=== PATIENT | female | born 1950 | race Caucasian/White ===

== ENCOUNTER 2020-06-01 11:18 | Outpatient (REF) | payer MEDICARE, SELFPAY ==
[2020-06-01 13:57] LABS: Hematocrit 40.9 % (37-47); Hemoglobin 12.9 g/dl (12.0-16.0); Mean Corpuscular HGB Conc 31.5 g/dl (31.0-35.0); Mean Corpuscular Hemoglobin 27.9 pg (27.0-33.0); Mean Corpuscular Volume 88.5 fL (80-98); Mean Platelet Volume 9.7 fL (9.4-12.3); Platelet Count 302 X10*3/uL (160-400); Red Blood Count 4.62 X10*6/uL (4.20-5.50); Red Cell Distribution Width 13.1 % (11.0-16.0); White Blood Count 7.2 X10*3/uL (4.8-10.8)
[2020-06-01 14:27] LABS: Alanine Aminotransferase 12 U/L (0-31); Albumin Level 4.5 g/dL (3.5-5.0); Alkaline Phosphatase 71 U/L (39-117); Anion Gap 14 (12-20); Aspartate Amino Transferase 18 U/L (5-31); Bilirubin Total 0.8 mg/dL (0.0-1.0); Blood Urea Nitrogen 14 mg/dL (9-16); Calcium 8.6 mg/dL (8.4-10.2); Carbon Dioxide 25 mmol/L (22-29); Chloride 105 mmol/L (96-108); Cholesterol 185 mg/dL; Estimated Glomerular Filt Rate > 60; Glucose Fasting 83 mg/dL (60-99); HDL Cholesterol 52 mg/dL; LDL Cholesterol Calculated 113 mg/dl; Potassium 4.2 mmol/l (3.3-5.1); Sodium 140 mmol/L (135-145); Total Protein 7.1 g/dL (6.5-8.0); Triglycerides 101 mg/dL
[2020-06-01 14:34] LABS: Vitamin D 25-OH Total 42.8 ng/mL (>30)
== END 2020-06-01 11:19 | disposition home or self-care (01) ==
LOC: HO.HMGCLDS 11:18
PROVIDERS: PCP Internal Medicine; Visit Provider Internal Medicine
DX: E78.2 Mixed hyperlipidemia (principal); F32.9 Major depressive disorder, single episode, unspecified; M85.80 Other specified disorders of bone density and structure, unspecified site
CPT/HCPCS: 36415; 80053; 80061; 82306; 85027

== ENCOUNTER 2020-12-06 08:32 | Outpatient (REF) | payer MEDICARE, SELFPAY ==
--- NOTE | ~2020-12-06 | MM_ITS ---
EXAMINATION: MM SCREENING DIGITAL BREAST TOMOSYNTHESIS, BILATERAL CLINICAL INFORMATION: Screening. Asymptomatic. Benign right retroareolar lumpectomy 09/03/2018 (benign breast tissue with fibrocystic changes; focal area representing the edge of the cyst or part of a papilloma). The lifetime risk of breast cancer based on the Tyrer-Cuzick Model is 10%. COMPARISON: Mammography: 10/07/2019, 10/05/2019, 07/21/2018; outside exam 11/24/2017 ([place]). TECHNIQUE: Digital breast tomosynthesis is performed in both the craniocaudal and mediolateral oblique views along with computer-aided detection (CAD). Synthesized 2D images are generated from the tomosynthesis. FINDINGS: There are scattered areas of fibroglandular density (ACR BI-RADS breast composition Category b). There are no significant masses, abnormal calcifications, or other abnormalities. Parenchymal pattern is similar to prior exams. No developing density. Skin contours are smooth. MM/MM tomosynthesis screening BI IMPRESSION: No mammographic evidence of malignancy. ASSESSMENT: BI-RADS 1: Negative RECOMMENDATION: Routine annual mammography screening. This patient's information was entered into a reminder system with a target due date for their next mammogram.
== END 2020-12-06 08:33 | disposition home or self-care (01) ==
LOC: HO.MAMMO 08:32
PROVIDERS: PCP Internal Medicine; Visit Provider Internal Medicine
DX: Z12.31 Encounter for screening mammogram for malignant neoplasm of breast (principal)
CPT/HCPCS: 77063; 77067

== ENCOUNTER 2021-04-11 11:32 | Outpatient (REF) | payer MEDICARE, SELFPAY ==
[2021-04-11 14:03] LABS: Hemoglobin 13.5 g/dl (12.0-16.0); Mean Corpuscular HGB Conc 32.1 g/dl (31.0-35.0); Mean Corpuscular Hemoglobin 28.2 pg (27.0-33.0); Mean Corpuscular Volume 87.9 fL (80-98); Platelet Count 310 X10*3/uL (160-400); Red Blood Count 4.78 X10*6/uL (4.20-5.50); Red Cell Distribution Width 12.8 % (11.0-16.0); White Blood Count 7.5 X10*3/uL (4.8-10.8)
[2021-04-11 14:18] LABS: Alanine Aminotransferase 13 U/L (0-31); Albumin Level 4.5 g/dL (3.5-5.0); Alkaline Phosphatase 71 U/L (39-117); Anion Gap 12 (12-20); Aspartate Amino Transferase 21 U/L (5-31); Bilirubin Total 0.6 mg/dL (0.0-1.0); Blood Urea Nitrogen 10 mg/dL (9-16); Calcium 9.9 mg/dL (8.4-10.2); Carbon Dioxide 25 mmol/L (22-29); Chloride 108 mmol/L (96-108); Cholesterol 181 mg/dL; Estimated Glomerular Filt Rate > 60; Glucose Fasting 81 mg/dL (60-99); HDL Cholesterol 51 mg/dL; LDL Cholesterol Calculated 108 mg/dl; Potassium 4.2 mmol/L (3.3-5.1); Sodium 141 mmol/L (135-145); Total Protein 7.1 g/dL (6.5-8.0); Triglycerides 114 mg/dL
== END 2021-04-11 11:33 | disposition home or self-care (01) ==
LOC: HO.HMGCLDS 11:32
PROVIDERS: PCP Internal Medicine; Visit Provider Internal Medicine
DX: E78.5 Hyperlipidemia, unspecified (principal); G47.33 Obstructive sleep apnea (adult) (pediatric); F03.90 Unspecified dementia, unspecified severity, without behavioral disturbance, psychotic disturbance, mood disturbance, and anxiety; Z99.89 Dependence on other enabling machines and devices
CPT/HCPCS: 36415; 80053; 80061; 85027

== ENCOUNTER 2021-07-03 10:21 | Outpatient (REF) | payer MEDICARE, SELFPAY ==
[2021-07-03 11:42] LABS: Appearance Urine HAZY; Color Urine YELLOW; Glucose Urine UA NEG (NEG); Leukocyte Esterase Urine NEG (NEG); Nitrite Urine NEG (NEG); PH 5.5 (5.0-8.0); Specific Gravity - Urine >= 1.030 (1.005-1.025); Urine Blood NEG (NEG); Urine Ketones NEG (NEG); Urine Protein NEG (NEG-TRACE)
[2021-07-03 12:15] LABS: Thyroid Stimulating Hormone 2.38 uIU/mL (0.32-4.0)
[2021-07-03 12:33] LABS: Bacteria Urine 2+ /LPF; Mucus Urine 1+ /LPF; RBC Urine 0 /HPF (0); Squamous Epithelial Cell Urine 2+ /LPF
== END 2021-07-03 10:22 | disposition home or self-care (01) ==
LOC: HO.HMGCLDS 10:21
PROVIDERS: PCP Internal Medicine; Visit Provider Internal Medicine
DX: E78.5 Hyperlipidemia, unspecified (principal); F03.90 Unspecified dementia, unspecified severity, without behavioral disturbance, psychotic disturbance, mood disturbance, and anxiety; G47.33 Obstructive sleep apnea (adult) (pediatric); Z99.89 Dependence on other enabling machines and devices
CPT/HCPCS: 36415; 81001; 84443

== ENCOUNTER → 2021-08-22 08:31 | Outpatient (BNVA) | payer MEDICARE, SELFPAY | PROVIDERS: PCP Internal Medicine | DX: R32 Unspecified urinary incontinence (principal); N39.41 Urge incontinence | CPT/HCPCS: Q3014 ==

== ENCOUNTER 2021-09-09 06:49 | Outpatient (RCR) | payer MEDICARE, SELFPAY ==
--- NOTE | 2021-09-09 10:26 | MHC.PT.EP ---
[facility] [place] Office [place] Office [place] Office [address] [place] Salvador [address] [phone] F: [phone] F: [phone] F: [phone] F: [phone] Physical Therapy Plan of Care Date of Evaluation: 09/09/21 Date of Surgery: n/a Diagnosis: Assessment: The patient arrived reporting mixed urinary incontinence. After consent an internal pelvic exam was completed of her Pelvic floor muscles. She had weakness, reduced coordination, and reduced endurance noted. Additionally, she has some behavior and lifestyle habits such as diet and water intake that we will work on. She is an excellent candidate for skilled Pelvic Floor therapy. No pelvic organ prolapse noted. She will benefit from body mechanics and posture recommendations to reduce strain to the pelvic floor. Frequency and Duration: The patient will be seen 2x/week x 4 weeks. Short Term Goals: Short term 1. Pt to be able to correctly activate her PFM to allow improved support to bowel and bladder. 2. Pt to be able to demonstrate a pre contraction before a cough 3. pt to be able to log roll correctly to reduce pressure on the pelvic floor. Cooperative Extension Agent Goals: 1. Pt to be independent with her final HEP for PFM in order to help maintain gains made in therapy. 2. Independent with PF contraction and concentric/eccentric control in all postures in 12 weeks 3. Pt to be able to make quick and long endurance contractions of the pelvic floor to show improved coordination and endurance of the pelvic floor Treatment Plan: Modalities to reduce pain, spasms and effusion. Manual therapy to restore motion and function. Therapeutic exercise to improve strength and flexibility. Neuromuscular re-education for posture and balance. Therapeutic activities to return to functional activities of daily living. Electronically signed by: Please sign and return to therapist. Thank you for your referral.
== END 2021-09-12 13:00 | disposition home or self-care (01) ==
LOC: HO.PT 06:49
PROVIDERS: PCP Internal Medicine
DX: R32 Unspecified urinary incontinence (principal)
CPT/HCPCS: 97112; 97162

== ENCOUNTER 2021-09-11 10:16 | Outpatient (REF) | payer MEDICARE, SELFPAY ==
--- NOTE | ~2021-09-11 | MM_ITS ---
EXAMINATION: BONE DENSITOMETRY CLINICAL INDICATION: Menopause. COMPARISON: This is the patient's baseline examination. TECHNIQUE: Using a [employer] DXA System (software version: 13.1) manufactured by [employer], dual-energy x-ray absorptiometry was performed of the lumbar spine and left hip. The images are of good technical quality. Summary results are attached. FINDINGS: AP SPINE L1-L4: BMD 0.813 g/cm2, Z-score -1.6, T-score -3.1, osteoporosis. LEFT FEMUR, NECK: BMD 0.751 g/cm2, Z-score -0.5, T-score -2.1, osteopenia. LEFT FEMUR, TOTAL: BMD 0.856 g/cm2, Z-score 0.1, T-score -1.2, osteopenia. IDENTIFIED RISK FACTORS: Menopause, height loss, hysterectomy, dementia, bilateral oophorectomy, osteoporosis, rheumatoid arthritis. HISTORY OF FRACTURE: None listed. MEDICATIONS: Calcium, vitamin D. MM/XR DEXA axial skeleton IMPRESSION: 1. DIAGNOSIS: Osteoporosis based on the lowest T-score value of -3.1 in the lumbar spine applying World Health Organization criteria. 2. 10-YEAR FRACTURE RISK PREDICTION, FRAX: According to the guidelines, FRAX calculation should only be performed on patients in the osteopenia bone density category. Therefore, FRAX was not performed on this patient. 3. Treatment Recommendations: NOF guidelines recommend consideration for treatment in postmenopausal women and men age 50 and older presenting with the following: -A hip or vertebral (clinical or morphometric) fracture. -T-score less than or equal to -2.5 at the femoral neck or spine after appropriate evaluation to exclude secondary causes. -Low bone mass at the hip or spine and a 10-year fracture probability by FRAX of greater than or equal to 3% for hip fracture or greater than or equal to 20% for major osteoporotic fracture based on the [place] adapted WHO algorithm. 4. Other Recommendations: All treatment decisions require clinical judgment and consideration of individual patient factors, including patient preferences, comorbidities, previous drug use, risk factors not captured in the FRAX model (e.g. frailty, falls, vitamin D deficiency, increased bone turnover, interval significant decline in bone density) and possible under or overestimation of fracture risk by FRAX. Additional medical evaluation for secondary cause of low bone mineral density may be appropriate. FUTURE SCAN RECOMMENDATION: People with diagnosed cases of osteoporosis or at high risk for fracture should have regular bone mineral density tests. For patients eligible for Medicare, routine testing is allowed once every 2 years. The testing frequency can be increased to one year for patients who have rapidly progressing disease, those who are receiving or discontinuing medical therapy to restore bone mass, or have additional risk factors.
== END 2021-09-11 10:17 | disposition home or self-care (01) ==
LOC: HO.MAMMO 10:16
PROVIDERS: Visit Provider Internal Medicine
DX: Z78.0 Asymptomatic menopausal state (principal); M06.9 Rheumatoid arthritis, unspecified; F03.90 Unspecified dementia, unspecified severity, without behavioral disturbance, psychotic disturbance, mood disturbance, and anxiety; Z90.710 Acquired absence of both cervix and uterus; Z90.722 Acquired absence of ovaries, bilateral
CPT/HCPCS: 77080

== ENCOUNTER → 2021-10-08 09:07 | Outpatient (BNVA) | payer MEDICARE, SELFPAY | PROVIDERS: PCP Internal Medicine; Referring Provider Internal Medicine; Visit Provider Nurse Practitioner Family | DX: G47.33 Obstructive sleep apnea (adult) (pediatric) (principal); Z99.89 Dependence on other enabling machines and devices | CPT/HCPCS: 99202 ==

== ENCOUNTER 2021-12-13 10:44 | Outpatient (REF) | payer MEDICARE, SELFPAY ==
--- NOTE | ~2021-12-13 | MM_ITS ---
EXAMINATION: MM SCREENING DIGITAL BREAST TOMOSYNTHESIS, BILATERAL CLINICAL INFORMATION: Screening. Asymptomatic. Prior benign right breast surgery 09/03/2018 (benign breast tissue with fibrocystic changes; focal area representing the edge of the cyst or part of a papilloma). The lifetime risk of breast cancer based on the Tyrer-Cuzick Model is 7%. COMPARISON: Mammography: 12/06/2020, 10/07/2019, 10/05/2019, 07/21/2018, 07/21/2018, 11/24/2017 TECHNIQUE: Digital breast tomosynthesis is performed in both the craniocaudal and mediolateral oblique views along with computer-aided detection (CAD). Synthesized 2D images are generated from the tomosynthesis. FINDINGS: There are scattered areas of fibroglandular density (ACR BI-RADS breast composition Category b). There are no significant masses, abnormal calcifications, or other abnormalities. Parenchymal pattern is similar to prior studies. There is no developing density. The axilla and skin contours are unremarkable. No significant changes. MM/MM tomosynthesis screening BI IMPRESSION: No mammographic evidence of malignancy. ASSESSMENT: BI-RADS 1: Negative RECOMMENDATION: Routine annual mammography screening. This patient's information was entered into a reminder system with a target due date for their next mammogram.
== END 2021-12-13 10:45 | disposition home or self-care (01) ==
LOC: HO.MAMMO 10:44
PROVIDERS: PCP Internal Medicine; Visit Provider Internal Medicine
DX: Z12.31 Encounter for screening mammogram for malignant neoplasm of breast (principal)
CPT/HCPCS: 77063; 77067

== ENCOUNTER → 2022-04-01 10:25 | Outpatient (BNVA) | payer MEDICARE, SELFPAY | PROVIDERS: PCP Internal Medicine; Visit Provider Nurse Practitioner Family | DX: G47.33 Obstructive sleep apnea (adult) (pediatric) (principal); R20.2 Paresthesia of skin; F09 Unspecified mental disorder due to known physiological condition; Z99.89 Dependence on other enabling machines and devices; Z79.899 Other long term (current) drug therapy | CPT/HCPCS: 99212 ==

== ENCOUNTER → 2022-08-26 10:18 | Outpatient (BNVA) | payer MEDICARE, SELFPAY | PROVIDERS: PCP Internal Medicine; Visit Provider Nurse Practitioner Family | DX: G47.33 Obstructive sleep apnea (adult) (pediatric) (principal); F09 Unspecified mental disorder due to known physiological condition; Z99.89 Dependence on other enabling machines and devices | CPT/HCPCS: 99212 ==

== ENCOUNTER 2022-12-23 09:34 | Outpatient (REF) | payer MEDICARE, SELFPAY ==
--- NOTE | ~2022-12-23 | MM_ITS ---
EXAMINATION: MM SCREENING DIGITAL BREAST TOMOSYNTHESIS, BILATERAL CLINICAL INFORMATION: Screening. Asymptomatic. Benign right retroareolar lumpectomy 09/03/2018 (benign breast tissue with fibrocystic changes; focal area representing the edge of the cyst or part of a papilloma). COMPARISON: Mammography: 12/13/2021, 12/06/2020, 10/07/2019, 10/05/2019, 07/21/2018; outside mammography 11/24/2017 ([place]); MRI breasts 08/06/2018. TECHNIQUE: Digital breast tomosynthesis is performed in both the craniocaudal and mediolateral oblique views along with computer-aided detection (CAD). Synthesized 2D images are generated from the tomosynthesis. FINDINGS: There are scattered areas of fibroglandular density (ACR BI-RADS breast composition Category b). There are no significant masses, abnormal calcifications, or other abnormalities. Parenchymal pattern is similar to prior studies. There is no developing density or architectural abnormality. The axilla and skin contours are unremarkable. No significant changes. MM/MM tomosynthesis screening BI IMPRESSION: No mammographic evidence of malignancy. ASSESSMENT: BI-RADS 1: Negative RECOMMENDATION: Routine annual mammography screening. This patient's information was entered into a reminder system with a target due date for their next mammogram.
== END 2022-12-23 09:35 | disposition home or self-care (01) ==
LOC: HO.MAMMO 09:34
PROVIDERS: PCP Internal Medicine; Visit Provider Internal Medicine
DX: Z12.31 Encounter for screening mammogram for malignant neoplasm of breast (principal)
CPT/HCPCS: 77063; 77067

== ENCOUNTER 2023-01-19 12:34 | Outpatient (REF) | payer MEDICARE, SELFPAY ==
[2023-01-19 13:50] LABS: MANUAL DIFF FLAG NO
[2023-01-19 14:00] LABS: Basophils Percent Auto 0.6 % (0-2); Eosinophils Absolute Auto 0.2 X10*3/uL (0.0-0.4); Eosinophils Percent Auto 2.1 % (0-4); Hematocrit 38.9 % (37.0-47.0); Hemoglobin 12.8 g/dl (12.0-16.0); Imm Gran Abs Auto 0.02 X10*3/uL (0.00-0.03); Imm Gran Pct Auto 0.3 % (0.0-0.4); Lymphocytes Absolute Auto 2.8 X10*3/uL (1.2-4.9); Lymphocytes Percent Auto 39.4 % (20-40); Mean Corpuscular HGB Conc 32.9 g/dl (31.0-35.0); Mean Corpuscular Hemoglobin 28.6 pg (27.0-33.0); Mean Platelet Volume 9.7 fL (9.4-12.3); Monocytes Absolute Auto 0.6 X10*3/uL (0.1-1.2); Monocytes Percent Auto 8.5 % (2-11); Neutrophils Absolute Auto 3.4 x10*3/uL (2.0-8.3); Neutrophils Percent Auto 49.1 % (45-73); Platelet Count 300 X10*3/uL (160-400); Red Blood Count 4.47 X10*6/uL (4.20-5.50); Red Cell Distribution Width 12.9 % (11.0-16.0)
[2023-01-19 14:50] LABS: Erythrocyte Sedimentation Rate 10 MM/HR (0-20)
[2023-01-19 15:22] LABS: Alanine Aminotransferase 16 U/L (0-31); Albumin Level 4.4 g/dL (3.5-5.0); Alkaline Phosphatase 56 U/L (39-117); Anion Gap 15 (12-20); Aspartate Amino Transferase 22 U/L (5-31); Bilirubin Total 0.7 mg/dL (0.0-1.0); Blood Urea Nitrogen 12 mg/dL (9-16); Calcium 9.6 mg/dL (8.4-10.2); Carbon Dioxide 24 mmol/L (22-29); Chloride 109 mmol/L (96-108); Cholesterol 204 mg/dL; Estimated Glomerular Filt Rate > 60; Glucose Fasting 76 mg/dL (60-99); HDL Cholesterol 53 mg/dL; LDL Cholesterol Calculated 132 mg/dl; Potassium 3.8 mmol/L (3.3-5.1); Sodium 144 mmol/L (135-145); Total Protein 7.5 g/dL (6.5-8.0); Triglycerides 98 mg/dL
[2023-01-19 15:37] LABS: Vitamin D 25-OH Total 38.5 ng/mL (>30)
[2023-01-19 15:46] LABS: Folate 12.4 ng/mL (> or = 4.0); Vitamin B12 309 pg/mL (200-900)
[2023-01-22 21:08] LABS: Methylmalonic Acid 117 nmol/L (87-318)
== END 2023-01-19 12:35 | disposition home or self-care (01) ==
LOC: HO.HMGCLDS 12:34
PROVIDERS: Nurse Practitioner Family; PCP Internal Medicine; Visit Provider Internal Medicine
DX: Z00.00 Encounter for general adult medical examination without abnormal findings (principal); E78.5 Hyperlipidemia, unspecified; M81.0 Age-related osteoporosis without current pathological fracture; F09 Unspecified mental disorder due to known physiological condition; R20.2 Paresthesia of skin
CPT/HCPCS: 36415; 80053; 80061; 82306; 82607; 82746; 83921; 85025; 85652

== ENCOUNTER 2023-07-06 11:18 | Outpatient (AMB) | payer MEDICARE, SELFPAY ==
[2023-07-06 11:49] VITALS: BP 120/72; PULSE 81; O2SAT 98; BMI 38.5
--- NOTE | 2023-07-06 11:49 | A.OFFPC_ITS ---
Vital Signs 07/06/23 11:49 Height 4 ft 10 in Weight 184 lb BMI 38.5 BP 120/72 Blood Pressure Location Lt brachial Position Sitting Pulse 81 Pulse Source Pulse Oximeter Pulse Oximetry (%) 98 Oxygen Delivery Method Room Air Intake Visit Reasons: 6 month follow up Hyperlipidemia/anxiety Intake Note: Pt is here today for 6 months follow up visit. Allergies diphenhydramine [From BENADRYL] Allergy (Severe, Verified 07/06/23 11:52) HIVES,THROAT SWELLING x3 DAYS-ALL FIRST GEN. ANTIHYSTIMINES Antihistamines Allergy (Unknown, Uncoded 07/06/23 11:52) hives first generation antihystamine Allergy (Unknown, Uncoded 07/06/23 11:52) hives, throat swelling, 3 days of sx unknown seasoning Allergy (Unknown, Uncoded 01/22/23 10:08) hives Tobacco use date assessed: 07/06/23 Fall risk assessment: 1 Fall in past year Last assessed Fall Risk: 07/06/23 Dental Screening Dental Screen Date: 07/06/23 Did you have a dental visit in the last 12 months?: Yes Did you have a dental problem in the last 6 months where you did not have access to dental care?: No Was dental information given to patient?: Patient has dentist HPI 6 month follow up Hyperlipidemia/anxiety HPI Details Patient presents for the follow-up on hyperlipidemia chronic anxiety mild dementia and osteoporosis. [facility] Medical History (Updated 01/22/23 @ 10:57 by Sheila Nieto MD) Osteoporosis Sinusitis Urge incontinence Postmenopausal Annual physical exam Anxiety Urinary incontinence Hyperlipidemia Hearing loss LEANN on CPAP Mild dementia Depression Surgical History Hx of tooth extraction H/O colonoscopy S/P MARIA DEL CARMEN (total abdominal hysterectomy) History of hysterectomy Family History Mother No problems noted. Father Cancer Social History Housing: House Alcohol intake: current Alcohol intake frequency: does not drink Patient Tobacco Use Status: Former Tobacco user Quit Date: 34 years ago e-Cigarette/Vaping Use: Never Used Current occupational status: retired Cognitive needs: No Hearing needs: No Vision needs: Yes Questionnaire Thrive Questionnaire Date Thrive assessed: 01/22/23 CATIA-7 AMB Questionnaire CATIA-7 Date CATIA - 7 assessed: 01/22/23 Source: Developed by Drs. Lakhwindre Roblero, Brittany Martin, Liu Frankel and colleagues, with an educational kathleen from [employer]. Review of Systems Const All systems reviewed & are unremarkable except as noted in HPI and below Reports no additional complaints Eyes Reports no additional complaints ENT Reports no additional complaints Card Reports no additional complaints Resp Reports no additional complaints GI Reports no additional complaints Reports no additional complaints Physical exam (Primary Care) Vital Signs: Last Vital Signs Pulse 81 07/06/23 11:49 BP 140/72 H 07/06/23 11:49 Pulse Ox 98 07/06/23 11:49 Oxygen Delivery Method Room Air 07/06/23 11:49 BMI result Body Mass Index 38.5 Tobacco/Smoking Status: Tobacco use Status Tobacco use date assessed 07/06/23 07/06/23 12:01 Patient Tobacco Use Status Former Tobacco user 07/06/23 12:01 e-Cigarette/Vaping Use Never Used 07/06/23 12:01 Thrive Assessment: Date of Thrive Assessment Date Thrive assessed 01/22/23 07/06/23 12:01 Const General: no acute distress HENMT Mouth: Normal oral and palatal mucosa present Eyes General: appearance normal, both eyes and all related structures Neck Neck: Yes supple Resp Effort & Inspection: normal respiratory effort Auscultation: clear to auscultation bilaterally Cardio Rhythm: regular rhythm Heart sounds: S1 normal heart sound present and S2 normal heart sound present GI Inspection: Yes normal to inspection Palpation (GI): Soft to palpation Percussion: Yes normal to percussion Auscultation: normal bowel sounds Assessment and Plan Assessment & Plan (1) Vitamin D deficiency: Code(s): E55.9 - Vitamin D deficiency, unspecified Plan: cont supplement (2) Mild dementia: Comment: Dr. Marcano Code(s): F03.90 - Unspecified dementia, unspecified severity, without behavioral disturbance, psychotic disturbance, mood disturbance, and anxiety Plan: cont Donepezil (3) Hyperlipidemia: Code(s): E78.5 - Hyperlipidemia, unspecified Plan: cont statin (4) Osteoporosis: Comment: DEXA 10/22 T score -3.1, 5/6/22 start Fosamax 70 mg Code(s): M81.0 - Age-related osteoporosis without current pathological fracture Plan: cont Fosamax, PE in Sept Orders: Orders Lipid Panel 10 Months E55.9 - Vitamin D deficiency, unspecified, E78.5 - Hyperlipidemia, unspecified, F03.90 - Unspecified dementia, unspecified severity, without behavioral disturbance, psychotic disturbance, mood disturbance, and anxiety, M81.0 - Age-related osteoporosis without current pathological fracture Vitamin B12 and Folate 10 Months E55.9 - Vitamin D deficiency, unspecified, E78.5 - Hyperlipidemia, unspecified, F03.90 - Unspecified dementia, unspecified severity, without behavioral disturbance, psychotic disturbance, mood disturbance, and anxiety, M81.0 - Age-related osteoporosis without current pathological fracture Vitamin D 25-OH Total 10 Months E55.9 - Vitamin D deficiency, unspecified, E78.5 - Hyperlipidemia, unspecified, F03.90 - Unspecified dementia, unspecified severity, without behavioral disturbance, psychotic disturbance, mood disturbance, and anxiety, M81.0 - Age-related osteoporosis without current pathological fracture TSH reflex Free T4 10 Months E55.9 - Vitamin D deficiency, unspecified, E78.5 - Hyperlipidemia, unspecified, F03.90 - Unspecified dementia, unspecified severity, without behavioral disturbance, psychotic disturbance, mood disturbance, and anxiety, M81.0 - Age-related osteoporosis without current pathological fracture Comprehensive [place]. Panel Fast 10 Months E55.9 - Vitamin D deficiency, unspecified, E78.5 - Hyperlipidemia, unspecified, F03.90 - Unspecified dementia, unspecified severity, without behavioral disturbance, psychotic disturbance, mo od disturbance, and anxiety, M81.0 - Age-related osteoporosis without current pathological fracture Complete Blood Count Auto Diff 10 Months E55.9 - Vitamin D deficiency, un specified, E78.5 - Hyperlipidemia, unspecified, F03.90 - Unspecified dementia, unspecified severity, without behavioral disturbance, psychotic disturbance, mood disturbance, and anxiety, M81.0 - Age-related osteoporosis without current pathological fracture Coding Level of Care Code Est Pt Level 4 (70248) Diagnoses Vitamin D deficiency E55.9 Mild dementia F03.90 Hyperlipidemia E78.5 Osteoporosis M81.0
== END 2023-07-06 12:40 | disposition home or self-care (01) ==
PROVIDERS: PCP Internal Medicine; Visit Provider Internal Medicine
DX: E55.9 Vitamin D deficiency, unspecified (principal); F03.90 Unspecified dementia, unspecified severity, without behavioral disturbance, psychotic disturbance, mood disturbance, and anxiety; E78.5 Hyperlipidemia, unspecified; M81.0 Age-related osteoporosis without current pathological fracture
CPT/HCPCS: 99214

== ENCOUNTER 2023-10-07 10:52 | Outpatient (AMB) | payer MEDICARE, SELFPAY ==
--- NOTE | 2023-10-07 11:08 | A.OFFVIS_ITS ---
Intake Vital Signs 10/07/23 11:12 Height 4 ft 10 in Weight 186 lb BMI 38.9 BP 142/72 H Blood Pressure Location Rt brachial Position Sitting Pulse 71 Pulse Source Pulse Oximeter Pulse Oximetry (%) 78 L Oxygen Delivery Method Room Air Intake Visit Reasons: 1 yr f/u appt-Conf Intake Note: Patient presents for 1 year follow up. no issues or concerns, this is just a follow up Allergies diphenhydramine [From BENADRYL] Allergy (Severe, Verified 10/07/23 11:13) HIVES,THROAT SWELLING x3 DAYS-ALL FIRST GEN. ANTIHYSTIMINES Antihistamines Allergy (Unknown, Uncoded 10/07/23 11:13) hives first generation antihystamine Allergy (Unknown, Uncoded 10/07/23 11:13) hives, throat swelling, 3 days of sx unknown seasoning Allergy (Unknown, Uncoded 10/07/23 11:13) hives HPI HPI Comments History of Present Illness Details 73-yr-old female presents for f/u visit. Pt denies any significant interval medical changes. 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 Her LEANN is well-controlled on PAP tx. She is using reminder notes. She has tracking tiles on her keys etc. 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 She does have interests- does spend time w/ her family and granddtr. Uses her CPAP most nights, generally sleeps well w/ use. Understands PAP tx is good for her overall health. Compliance Report, 09/07/2023 - 10/06/2023 Usage days 29/30 days (97%) >= 4 hours AirSense 10 AutoSet Serial number [id number] Mode AutoSet Min Pressure 6-12 cmH2O EPR Fulltime EPR level 2 Response Standard Therapy Pressure Residual AHI: 5.2 PFSH Medical History (Updated 01/22/23 @ 10:57 by Sheila Nieto MD) Osteoporosis Sinusitis Urge incontinence Postmenopausal Annual physical exam Anxiety Urinary incontinence Hyperlipidemia Hearing loss LEANN on CPAP Mild dementia Depression Surgical History Hx of tooth extraction H/O colonoscopy S/P MARIA DEL CARMEN (total abdominal hysterectomy) History of hysterectomy Family History Mother No problems noted. Father Cancer Social History Housing: House Alcohol intake: current Alcohol intake frequency: does not drink Patient Tobacco Use Status: Former Tobacco user Quit Date: 34 years ago e-Cigarette/Vaping Use: Never Used Current occupational status: retired Cognitive needs: No Hearing needs: No Vision needs: Yes Physical Exam Vital Signs: Last Vital Signs Pulse 71 10/07/23 11:12 BP 142/72 H 10/07/23 11:12 Pulse Ox 78 L 10/07/23 11:12 Oxygen Delivery Method Room Air 10/07/23 11:12 BMI result Body Mass Index 38.9 Const General: cooperative and no acute distress Orientation/consciousness: patient oriented x3 Resp Effort & Inspection: normal respiratory effort and able to speak in complete sentences Neuro General: patient oriented x3 Cranial nerves: Yes CN's II-XII intact bilaterally Cognition (Neuro): normal cognition Psych Appearance: grossly normal Mental Status: mental status grossly normal Speech and movement: Normal speech and movement present Affect: normal affect Attitude: cooperative Assessment & Plan Assessment & Plan (1) Cognitive dysfunction: Comment: Follow-up with [facility] Neurology Code(s): F09 - Unspecified mental disorder due to known physiological condition (2) LEANN on CPAP: Code(s): G47.33 - Obstructive sleep apnea (adult) (pediatric); Z99.89 - Dependence on other enabling machines and devices Plan Reviewed neuro-psych report- Unspecified 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 Discussed that results were not c/w a progressive neuro-degenerative d/o. Continue to optimize good self care. Continue donepazil 10mg qd. Continue APAP 6-12 cm H2O nightly greater than 4 hours, as patient has had good clinical effect from use.? f/u in 1 yr or sooner prn Coding Level of Care Code Est Pt Level 3 (49999) Diagnoses Cognitive dysfunction F09 LEANN on CPAP G47.33; Z99.89
[2023-10-07 11:12] VITALS: BP 142/72; PULSE 71; O2SAT 78; BMI 38.9
== END 2023-10-07 11:59 | disposition home or self-care (01) ==
PROVIDERS: PCP Internal Medicine; Visit Provider Nurse Practitioner Family
DX: R41.89 Other symptoms and signs involving cognitive functions and awareness (principal); G47.33 Obstructive sleep apnea (adult) (pediatric); Z99.89 Dependence on other enabling machines and devices
CPT/HCPCS: 99213

== ENCOUNTER → 2023-10-07 10:52 | Outpatient (BNVA) | payer MEDICARE, SELFPAY | PROVIDERS: PCP Internal Medicine; Visit Provider Nurse Practitioner Family | DX: G47.33 Obstructive sleep apnea (adult) (pediatric) (principal); F09 Unspecified mental disorder due to known physiological condition; Z99.89 Dependence on other enabling machines and devices | CPT/HCPCS: 99212 ==

== ENCOUNTER 2023-10-19 10:48 | Outpatient (AMB) | payer MEDICARE, SELFPAY ==
[2023-10-19 10:50] VITALS: BP 124/62; PULSE 77; RESP 12; O2SAT 99; BMI 39.1
--- NOTE | 2023-10-19 10:50 | AM.OFFWIN_ITS ---
Intake Vital Signs 10/19/23 10:50 Height 4 ft 10 in Weight 187 lb BMI 39.1 BP 124/62 Blood Pressure Location Rt brachial Position Sitting Respiration 12 Pulse 77 Pulse Source Pulse Oximeter Pulse Oximetry (%) 99 Oxygen Delivery Method Room Air Intake Visit Reasons: itchy hands rash Intake Note: Patient reports she has experienced itching palms of hands bilaterally x1 month. Patient reports she see's small, round, red, blisters on the hands which are also itchy x3 days. Patient Tobacco Use Status: Former Tobacco user Quit Date: 34 years ago Accompanied by: Self / Same As Patient Allergies diphenhydramine [From BENADRYL] Allergy (Severe, Verified 10/19/23 10:54) HIVES,THROAT SWELLING x3 DAYS-ALL FIRST GEN. ANTIHYSTIMINES Antihistamines Allergy (Unknown, Uncoded 10/19/23 10:54) hives first generation antihystamine Allergy (Unknown, Uncoded 10/19/23 10:54) hives, throat swelling, 3 days of sx unknown seasoning Allergy (Unknown, Uncoded 10/19/23 10:54) hives Do you need a note to return to daycare/school/sports/work: No HPI itchy hands rash HPI Details 73 y/o female presents today with compla ints of a rash. Itching started about a month ago. Patient reports she has experienced itching palms of hands bilaterally x1 month. Patient reports she see's small, round, red, blisters on the hands which are also itchy x3 days. She denies any muscle weakness on arms/shoulders. She denies any recent illnesses. [facility] Medical History (Updated 10/19/23 @ 11:07 by Marco Aceves) Osteoporosis Sinusitis Urge incontinence Postmenopausal Annual physical exam Anxiety Urinary incontinence Hyperlipidemia Hearing loss LEANN on CPAP Mild dementia Depression Surgical History Hx of tooth extraction H/O colonoscopy S/P MARIA DEL CARMEN (total abdominal hysterectomy) History of hysterectomy Family History Mother No problems noted. Father Cancer Social History Housing: House Alcohol intake: current Alcohol intake frequency: does not drink Patient Tobacco Use Status: Former Tobacco user Quit Date: 34 years ago e-Cigarette/Vaping Use: Never Used Current occupational status: retired Cognitive needs: No Hearing needs: No Vision needs: Yes Review of Systems Const Denies chills, Denies fatigue, Denies fever(s), Denies headache(s) and Denies weakness ENT Denies dizziness and Denies headache(s) Card Denies dyspnea Resp Denies cough, Denies dyspnea, Denies wheezing and Denies other (shortness of breath) Musc Denies numbness and Denies tingling Skin/Breast Reports rash Neuro Denies dizziness, Denies headache(s), Denies numbness, Denies tingling and Denies weakness Psych Denies anxiety and Denies depression Endo Denies fatigue Aller/Immun Denies wheezing Physical Exam Vital Signs: Last Vital Signs Pulse 77 10/19/23 10:50 Resp 12 10/19/23 10:50 BP 124/62 10/19/23 10:50 Pulse Ox 99 10/19/23 10:50 Oxygen Delivery Method Room Air 10/19/23 10:50 BMI result Body Mass Index 39.1 Const General: well developed; No acute distress Nutritional Appearance: well nourished and obese Orientation/consciousness: patient oriented x3 HEENT Head: Yes normocephalic and Yes atraumatic Eyes General: appearance normal, both eyes and all related structures Pupils: Equal, round and reactive pupils present EOM: EOMs intact bilaterally Resp Effort & Inspection: normal respiratory effort Skin Other: Discrete erythematous and mildly raised lesion on bilateral hands. Neuro General: patient oriented x3 and gait normal Cranial nerves: Yes Equal, round and reactive pupils present Psych Affect: normal affect Assessment & Plan Assessment & Plan (1) Rash: Code(s): R21 - Rash and other nonspecific skin eruption Plan: Discrete?erythematous?and?mildly?raised?lesion?on?bilateral?hands, mostly?on?dorsal?aspect?but?some?lesions?on?palm?as?well. No?recent?illnesses Would?not?expect?insect?bites?to?only?be?on?hands?but?now?arms A ppearance?is?partially?consistent?with?a?folliculitis?on?dorsal?aspect?of?the?louis nds?but?would?not?expect?a?folliculitis?on?her?palms. No?muscle?pain?or?weakness Patient?has?many?allergies?and?this?is?most?likely?a?contact?dermatitis Should?improve?with?a?steroid?ointment?and?she?should?watch?for?any?exposures?th at?may?be?responsible?for?the?rash. Also?checking?labs Call?or?return?to?office?if?not?improving?or?worsens.??Follow- up?with?your?PCP?as?well Orders: Orders Comprehensive Met. Panel Today R21 - Rash and other nonspecific skin eruption CRP High Sensitivity Today R21 - Rash and other nonspecific skin eruption Complete Blood Count Auto Diff Today R21 - Rash and other nonspecific skin eruption, Z00.00 - Encounter for general adult medical examination without abnormal findings TSH reflex Free T4 Today R21 - Rash and other nonspecific skin eruption, Z00.00 - Encounter for general adult medical examination without abnormal findings Erythrocyte Sedimentation Rate Today R21 - Rash and other nonspecific skin eruption Medications: New triamcinolone acetonide 0.5% 1 appl topical BID 30 grams 0RF 14 days Coding Level of Care Code Est Pt Level 3 (51859) Diagnoses Rash R21
== END 2023-10-19 11:52 | disposition home or self-care (01) ==
PROVIDERS: PCP Internal Medicine; Visit Provider Family Medicine
DX: R21 Rash and other nonspecific skin eruption (principal)
CPT/HCPCS: 99213

== ENCOUNTER 2023-10-19 12:00 | Outpatient (REF) | payer MEDICARE, SELFPAY ==
[2023-10-19 14:09] LABS: MANUAL DIFF FLAG NO
[2023-10-19 14:18] LABS: Basophils Percent Auto 0.6 % (0-2); Eosinophils Absolute Auto 0.1 X10*3/uL (0.0-0.4); Eosinophils Percent Auto 2.1 % (0-4); Hemoglobin 13.2 g/dl (12.0-16.0); Imm Gran Abs Auto 0.02 X10*3/uL (0.00-0.03); Imm Gran Pct Auto 0.3 % (0.0-0.4); Lymphocytes Absolute Auto 2.5 X10*3/uL (1.2-4.9); Lymphocytes Percent Auto 36.6 % (20-40); Mean Corpuscular Hemoglobin 28.7 pg (27.0-33.0); Mean Platelet Volume 9.8 fL (9.4-12.3); Monocytes Absolute Auto 0.5 X10*3/uL (0.1-1.2); Monocytes Percent Auto 7.6 % (2-11); Neutrophils Absolute Auto 3.6 x10*3/uL (2.0-8.3); Neutrophils Percent Auto 52.8 % (45-73); Platelet Count 288 X10*3/uL (160-400); Red Cell Distribution Width 13.3 % (11.0-16.0); White Blood Count 6.8 X10*3/uL (4.8-10.8)
[2023-10-19 14:48] LABS: Erythrocyte Sedimentation Rate 16 MM/HR (0-20)
[2023-10-19 15:05] LABS: Alanine Aminotransferase 16 U/L (0-31); Albumin Level 4.3 g/dL (3.5-5.0); Alkaline Phosphatase 51 U/L (39-117); Anion Gap 12 (12-20); Aspartate Amino Transferase 20 U/L (5-31); Bilirubin Total 0.5 mg/dL (0.0-1.0); Blood Urea Nitrogen 12 mg/dL (9-16); Calcium 9.5 mg/dL (8.4-10.2); Carbon Dioxide 25 mmol/L (22-29); Chloride 107 mmol/L (96-108); Estimated Glomerular Filt Rate > 60; Glucose Random 85 mg/dL (60-115); Potassium 3.9 mmol/L (3.3-5.1); Sodium 140 mmol/L (135-145); Total Protein 7.3 g/dL (6.5-8.0)
[2023-10-19 15:24] LABS: TSH reflex Free T4 2.94 uIU/mL (0.32-4.0)
[2023-10-20 15:13] LABS: CRP High Sensitivity 2.2 mg/L
== END 2023-10-19 12:01 | disposition home or self-care (01) ==
LOC: HO.WFDLDS 12:00
PROVIDERS: Visit Provider Family Medicine
DX: Z00.00 Encounter for general adult medical examination without abnormal findings (principal); R21 Rash and other nonspecific skin eruption
CPT/HCPCS: 36415; 80053; 84443; 85025; 85652; 86141

== ENCOUNTER 2023-11-26 09:00 | Outpatient (AMB) | payer MEDICARE, SELFPAY ==
[2023-11-26 09:09] VITALS: BP 120/74; PULSE 70; O2SAT 97; BMI 39.5
--- NOTE | 2023-11-26 09:09 | A.OFFPC_ITS ---
Vital Signs 11/26/23 09:09 Height 4 ft 10 in Weight 189 lb BMI 39.5 BP 120/74 Blood Pressure Location Lt brachial Position Sitting Pulse 70 Pulse Source Pulse Oximeter Pulse Oximetry (%) 97 Oxygen Delivery Method Room Air Intake Visit Reasons: Cataract Bilateral 12/02, 12/23 Intake Note: Pt is here today for a pre op visit.Pt is having cataract surgery on 12/03/23 and 12/24/[address] Webb. Allergies diphenhydramine [From BENADRYL] Allergy (Severe, Verified 11/26/23 09:21) HIVES,THROAT SWELLING x3 DAYS-ALL FIRST GEN. ANTIHYSTIMINES Antihistamines Allergy (Unknown, Uncoded 11/26/23 09:21) hives first generation antihystamine Allergy (Unknown, Uncoded 11/26/23 09:21) hives, throat swelling, 3 days of sx unknown seasoning Allergy (Unknown, Uncoded 11/26/23 09:21) hives Medication List - Last Reconciled 11/26/23 by Sheila Nieto MD alendronate 70 mg PO QWEEK ascorbic acid (vitamin C) mg PO cholecalciferol (vitamin D3) 100 mcg PO DAILY coenzyme [id number] E 100-100 mg-unit caps PO fexofenadine 180 mg PO DAILY [fish oil 550 mg 1 tab daily] flu vacc [id number](65yr up)-PF mL IM neomycin-polymyxin B-dexameth drps ophthalmic (eye) rosuvastatin 40 mg PO DAILY sertraline 50 mg PO DAILY triamcinolone acetonide 0.5% 1 appl topical BID 14 days zinc gluconate 30 mg PO DAILY Tobacco use date assessed: 11/26/23 Fall risk assessment: No Falls in past year Last assessed Fall Risk: 11/26/23 Dental Screening Dental Screen Date: 11/26/23 Did you have a dental visit in the last 12 months?: Yes Did you have a dental problem in the last 6 months where you did not have access to dental care?: No Was dental information given to patient?: Patient has dentist HPI Cataract Bilateral 12/02, 12/23 HPI Details Pt presents for preop for cataract surgery. HYPERLIPIDEMIA IS CONTROLLED ON CRESTOR . PATIENT HAS BEEN TOLERATING FOSAMAX. [facility] Medical History (Updated 04/25/24 @ 10:04 by Sheila Nieto MD) Osteoporosis Sinusitis Urge incontinence Postmenopausal Annual physical exam Anxiety Urinary incontinence Hyperlipidemia Hearing loss LEANN on CPAP Depression Surgical History Hx of tooth extraction H/O colonoscopy S/P MARIA DEL CARMEN (total abdominal hysterectomy) History of hysterectomy Family History Mother No problems noted. Father Cancer Social History Housing: House Alcohol intake: current Alcohol intake frequency: does not drink Patient Tobacco Use Status: Former Tobacco user Quit Date: 34 years ago e-Cigarette/Vaping Use: Never Used service: No Current occupational status: retired Cognitive needs: No Hearing needs: No Vision needs: Yes Questionnaire Thrive Questionnaire Date Thrive assessed: 01/22/23 AUDIT C Alcohol Use Questionnaire (AUDIT-C) 1. How often do you have a drink containing alcohol?: Monthly or less 2. How many drinks containing alcohol do you have on a typical day when you are drinking?: 1 or 2 3. How often do you have six or more drinks on one occasion?: Never Total Score: 1 CATIA-7 AMB Questionnaire CATIA-7 Date CATIA - 7 assessed: 01/22/23 Feeling nervous, anxious, or on edge: 1 = Several days Not being able to stop or control worryin = Nearly every day Worrying too much about different things: 3 = Nearly every day Trouble relaxin = More than half the days Being so restless that it is hard to sit still: 0 = Not at all Becoming easily annoyed or irritable: 1 = Several days Feeling afraid as if something awful might happen: 1 = Several days Total CATIA-7 score (0-4 normal; 5-9 mild; 10-14 moderate; 15-21 severe): 11 Source: Developed by Drs. Lakhwinder Roblero, Brittany Martin, Liu Frankel and colleagues, with an educational kathleen from [employer] Review of Systems Const All systems reviewed & are unremarkable except as noted in HPI and below Eyes Reports no additional complaints ENT Reports no additional complaints Card Reports no additional complaints Resp Reports no additional complaints GI Reports no additional complaints Reports no additional complaints Physical exam (Primary Care) Vital Signs: Last Vital Signs Pulse 70 11/26/23 09:09 BP 120/74 11/26/23 09:09 Pulse Ox 97 11/26/23 09:09 Oxygen Delivery Method Room Air 11/26/23 09:09 BMI result Body Mass Index 39.5 Tobacco/Smoking Status: Tobacco use Status Tobacco use date assessed 11/26/23 11/26/23 09:24 Patient Tobacco Use Status Former Tobacco user 11/26/23 09:24 e-Cigarette/Vaping Use Never Used 11/26/23 09:09 Thrive Assessment: Date of Thrive Assessment Date Thrive assessed 01/22/23 11/26/23 09:09 Const General: no acute distress HENMT Ears: TM's normal bilaterally Face and sinus: Yes normal facial exam Neck Neck: Yes supple Resp Effort & Inspection: normal respiratory effort Auscultation: clear to auscultation bilaterally Cardio Rhythm: regular rhythm Heart sounds: S1 normal heart sound present and S2 normal heart sound present GI Inspection: Yes normal to inspection Assessment and Plan Assessment & Plan (1) Hearing loss: Code(s): H91.90 - Unspecified hearing loss, unspecified ear Plan: REFER FOR HEARING TEST (2) Osteoporosis: Comment: DEXA 10/22 T score -3.1, 12/06/21 start Fosamax 70 mg Code(s): M81.0 - Age-related osteoporosis without current pathological fracture Plan: Continue Fosamax (3) Cataract: Code(s): H26.9 - Unspecified cataract Plan: Patient is medically cleared for cataract surgery (4) Hyperlipidemia: Code(s): E78.5 - Hyperlipidemia, unspecified Plan: Continue statin Orders: Referrals Speech and Hearing Referral H91.90 - Unspecified hearing loss, unspecified ear Coding Level of Care Code Est Pt Level 4 (39454) Diagnoses Hearing loss H91.90 Osteoporosis M81.0 Cataract H26.9 Hyperlipidemia E78.5
== END 2023-11-26 10:05 | disposition home or self-care (01) ==
PROVIDERS: PCP Internal Medicine; Visit Provider Internal Medicine
DX: H26.9 Unspecified cataract (principal); Z01.818 Encounter for other preprocedural examination; M81.0 Age-related osteoporosis without current pathological fracture; E78.5 Hyperlipidemia, unspecified
CPT/HCPCS: 99214

== ENCOUNTER 2023-12-29 12:25 | Outpatient (REF) | payer MEDICARE, SELFPAY ==
--- NOTE | ~2023-12-29 | MM_ITS ---
EXAMINATION: MM SCREENING DIGITAL BREAST TOMOSYNTHESIS, BILATERAL CLINICAL INFORMATION: Screening. Asymptomatic. Patient is status post benign right breast excision. COMPARISON: Mammography: This study is compared with prior exams dating back to 2019. TECHNIQUE: Digital breast tomosynthesis is performed in both the craniocaudal and mediolateral oblique views along with computer-aided detection (CAD). Synthesized 2D images are generated from the tomosynthesis. FINDINGS: There are scattered areas of fibroglandular density (ACR BI-RADS breast composition Category b). There are no significant masses, abnormal calcifications, or other abnormalities. MM/MM tomosynthesis screening BI IMPRESSION: No mammographic evidence of malignancy. ASSESSMENT: BI-RADS BI-RADS 1 - Negative RECOMMENDATION: Routine annual mammography screening. 1 year F/U This examination should not preclude the clinical evaluation of a suspicious palpable abnormality. This patient's information was entered into a reminder system with a target due date for their next mammogram.
== END 2023-12-29 12:26 | disposition home or self-care (01) ==
LOC: HO.MAMMO 12:25
PROVIDERS: PCP Internal Medicine; Visit Provider Internal Medicine
DX: Z12.31 Encounter for screening mammogram for malignant neoplasm of breast (principal)
CPT/HCPCS: 77063; 77067

== ENCOUNTER → 2023-12-29 12:30 | Outpatient (BNV) | payer MEDICARE, SELFPAY | PROVIDERS: PCP Internal Medicine; Visit Provider Radiology Diagnostic Radiology | DX: Z12.31 Encounter for screening mammogram for malignant neoplasm of breast (principal) | CPT/HCPCS: 77063; 77067 ==

== ENCOUNTER 2024-01-01 09:13 | Outpatient (REF) | payer MEDICARE, SELFPAY | END 2024-01-01 09:14 | disposition home or self-care (01) | LOC: HO.SH 09:13 | PROVIDERS: Visit Provider Internal Medicine | DX: Z01.118 Encounter for examination of ears and hearing with other abnormal findings (principal); H90.3 Sensorineural hearing loss, bilateral | CPT/HCPCS: 92557; 92567 ==

== ENCOUNTER 2024-04-11 09:41 | Outpatient (AMB) | payer MEDICARE, SELFPAY ==
--- NOTE | 2024-04-11 09:51 | A.OFFPC_ITS ---
Vital Signs 04/11/24 09:52 Height 4 ft 10 in Weight 191 lb BMI 39.9 BP 118/64 Blood Pressure Location Lt brachial Position Sitting Pulse 72 Pulse Source Pulse Oximeter Pulse Oximetry (%) 97 Oxygen Delivery Method Room Air Intake Visit Reasons: PE Intake Note: Pt is here today for PE. Allergies diphenhydramine [From BENADRYL] Allergy (Severe, Verified 04/11/24 09:53) HIVES,THROAT SWELLING x3 DAYS-ALL FIRST GEN. ANTIHYSTIMINES Antihistamines Allergy (Unknown, Uncoded 04/11/24 09:53) hives first generation antihystamine Allergy (Unknown, Uncoded 04/11/24 09:53) hives, throat swelling, 3 days of sx unknown seasoning Allergy (Unknown, Uncoded 04/11/24 09:53) hives Medication List - Last Reconciled 04/11/24 by Sheila Nieto MD alendronate 70 mg PO QWEEK ascorbic acid (vitamin C) mg PO cholecalciferol (vitamin D3) 100 mcg PO DAILY coenzyme [id number] E 100-100 mg-unit caps PO fexofenadine 180 mg PO DAILY [fish oil 550 mg 1 tab daily] flu vacc [id number](65yr up)-PF mL IM neomycin-polymyxin B-dexameth drps ophthalmic (eye) rosuvastatin 40 mg PO DAILY sertraline 50 mg PO DAILY triamcinolone acetonide 0.5% 1 appl topical BID 14 days zinc gluconate 30 mg PO DAILY Tobacco use date assessed: 04/11/24 Fall risk assessment: No Falls in past year Last assessed Fall Risk: 04/11/24 Dental Screening Dental Screen Date: 11/26/23 HPI PE HPI Details Pt presents for PE. Patient has been under lot of stress taking care of her with dementia PFSH Medical History Osteoporosis Sinusitis Urge incontinence Postmenopausal Annual physical exam Anxiety Urinary incontinence Hyperlipidemia Hearing loss LEANN on CPAP Depression Surgical History Hx of bilateral cataract extraction Hx of tooth extraction H/O colonoscopy S/P MARIA DEL CARMEN (total abdominal hysterectomy) History of hysterectomy Family History Mother No problems noted. Father Cancer Social History Housing: House Alcohol intake: current Alcohol intake frequency: does not drink Patient Tobacco Use Status: Former Tobacco user e-Cigarette/Vaping Use: Never Used service: No Current occupational status: retired Cognitive needs: No Hearing needs: No Vision needs: Yes Questionnaire PHQ-9 Over the last 2 weeks, how often have you been bothered by any of the following problems? 1. Little interest or pleasure in doing things: several days 2. Feeling down, depressed, or hopeless: several days 3. Trouble falling or staying asleep, or sleeping too much: several days 4. Feeling tired or having little energy: several days 5. Poor appetite or overeating: several days 6. Feeling bad about yourself - or that you are a failure or have let yourself or your family down: several days 7. Trouble concentrating on things, such as reading the newspaper or watching television: not at all 8. Moving or speaking so slowly that other people could have noticed. Or the opposite - being so fidgety or restless that you have been moving around a lot more than usual: not at all 9. Thoughts that you would be better off or of hurting yourself in some way: not at all Total score: 6 Depression Screening Interpretation: Negative Depression Screening Done: Yes 07674 - PHQ-9 Billing: Yes Source: Developed by Drs. Lakhwinder Roblero, Brittany Martin, Liu Frankel and colleagues, with an educational kathleen from [employer]. Thrive Questionnaire Date Thrive assessed: 04/11/24 I am a: Patient What is your living situation today?: I have a steady place to live Within the past 12 months, did the food you bought not last and you didn't have the money to get more?: Never true Within the past 12 months, did you worry whether your food would run out before you got money to buy more?: Never true Do you have trouble paying for medicines?: No Do you have trouble getting transportation to medical appointments?: No Do you have trouble paying your heating and electricity bill?: No Do you have trouble taking care of your child, family member or friend?: No Do you have trouble with day-to-day activities such as bathing, preparing meals, shopping, managing finances, etc.?: No Are you currently unemployed and looking for a job?: No Are you interested in more education?: No Please select the resources that you would like help with: None Currently or been in a relationship where the following occur: No concerns reported THRIVE Score: 0 AUDIT C Alcohol Use Questionnaire (AUDIT-C) 1. How often do you have a drink containing alcohol?: Never 3. How often do you have six or more drinks on one occasion?: Never Total Score: 0 CATIA-7 AMB Questionnaire CATIA-7 Date CATIA - 7 assessed: 04/11/24 Feeling nervous, anxious, or on edge: 1 = Several days Not being able to stop or control worryin = Several days Worrying too much about different things: 1 = Several days Trouble relaxin = Several days Being so restless that it is hard to sit still: 1 = Several days Becoming easily annoyed or irritable: 1 = Several days Feeling afraid as if something awful might happen: 1 = Several days Total CATIA-7 score (0-4 normal; 5-9 mild; 10-14 moderate; 15-21 severe): 7 Source: Developed by Drs. Lakhwinder Roblero, Brittany Martin, Liu Frankel and colleagues, with an educational kathleen from [employer]. CATIA-7 Assessment Billing CATIA-7 Assessment Tool: CATIA-7 Assessment 41202 Review of Systems Const All systems reviewed & are unremarkable except as noted in HPI and below Reports no additional complaints Eyes Reports no additional complaints ENT Reports no additional complaints Card Reports no additional complaints Resp Reports no additional complaints GI Reports no additional complaints Physical exam (Primary Care) Vital Signs: Last Vital Signs Pulse 72 04/11/24 09:52 BP 118/64 04/11/24 09:52 Pulse Ox 97 04/11/24 09:52 Oxygen Delivery Method Room Air 04/11/24 09:52 BMI result Body Mass Index 39.9 Tobacco/Smoking Status: Tobacco use Status Tobacco use date assessed 04/11/24 04/11/24 09:59 Patient Tobacco Use Status Former Tobacco user 04/11/24 09:59 e-Cigarette/Vaping Use Never Used 04/11/24 09:59 PHQ-9: PHQ-9 Score PHQ-9: Total score 6 04/11/24 09:59 Depression Screening Interpretation: Negative Thrive Assessment: Date of Thrive Assessment Date Thrive assessed 04/11/24 04/11/24 09:59 Currently or been in a relationship where the following occur: No concerns reported Const General: no acute distress HENMT Head: Yes normal to inspection Ears: hearing grossly normal bilaterally Throat: Yes posterior oropharynx normal Resp Effort & Inspection: normal respiratory effort Auscultation: clear to auscultation bilaterally Cardio Rhythm: regular rhythm Heart sounds: S1 normal heart sound present and S2 normal heart sound present GI Inspection: Yes normal to inspection Palpation (GI): Soft to palpation Percussion: Yes normal to percussion Auscultation: normal bowel sounds Assessment and Plan Assessment & Plan (1) Hyperlipidemia: Code(s): E78.5 - Hyperlipidemia, unspecified Plan: Continue statin return for fasting blood work (2) Annual physical exam: Code(s): Z00.00 - Encounter for general adult medical examination without abnormal findings Plan: Well-balanced diet regular physical activity discussed with the patient. Patient is up-to-date with colonoscopy and mammogram (3) Osteoporosis: Comment: DEXA 10/22 T score -3.1, 12/06/21 start Fosamax 70 mg Code(s): M81.0 - Age-related osteoporosis without current pathological fracture Plan: She has been taking Fosamax for 2 years, check DEXA and vitamin-D level Orders: Orders Lipid Panel Today E78.5 - Hyperlipidemia, unspecified, M81.0 - Age-related osteoporosis without current pathological fracture, Z00.00 - Encounter for general adult medical examination without abnormal findings Complete Blood Count Auto Diff Today E78.5 - Hyperlipidemia, unspecified, M81.0 - Age-related osteoporosis without current pathological fracture, Z00.00 - Encounter for general adult medical examination without abnormal findings Comprehensive Egan. Panel Fast Today E78.5 - Hyperlipidemia, unspecified, M81.0 - Age-related osteoporosis without current pathological fracture, Z00.00 - Encounter for general adult medical examination without abnormal findings Vitamin D 25-OH Total Today E78.5 - Hyperlipidemia, unspecified, M81.0 - Age- related osteoporosis without current pathological fracture, Z00.00 - Encounter for general adult medical examination without abnormal findings XR DEXA axial skeleton Today M81.0 - Age-related osteoporosis without current pathological fracture Medications: Changed From sertraline 50 mg PO DAILY To sertraline 100 mg PO DAILY 90 tabs 3RF Refilled rosuvastatin 40 mg PO DAILY 90 tabs 3RF Coding Level of Care Code Est Pt Prev Care >65y(40201) Diagnoses Hyperlipidemia E78.5 Annual physical exam Z00.00 Osteoporosis M81.0 Additional Codes CATIA-7 Assessment Billing - CATIA-7 Assessment Tool: CATIA-7 Assessment 47607 ([id number])
[2024-04-11 09:52] VITALS: BP 118/64; PULSE 72; O2SAT 97; BMI 39.9
== END 2024-04-11 10:35 | disposition home or self-care (01) ==
PROVIDERS: PCP Internal Medicine; Visit Provider Internal Medicine
DX: Z00.00 Encounter for general adult medical examination without abnormal findings (principal); E78.5 Hyperlipidemia, unspecified; M81.0 Age-related osteoporosis without current pathological fracture
CPT/HCPCS: 99397

== ENCOUNTER 2024-04-11 10:36 | Outpatient (REF) | payer MEDICARE, SELFPAY ==
[2024-04-11 13:19] LABS: MANUAL DIFF FLAG NO
[2024-04-11 13:27] LABS: Basophils Absolute Auto 0.1 X10*3/uL (0.0-0.2); Basophils Percent Auto 0.6 % (0-2); Eosinophils Absolute Auto 0.2 X10*3/uL (0.0-0.4); Hematocrit 41.5 % (37.0-47.0); Hemoglobin 13.4 g/dl (12.0-16.0); Imm Gran Abs Auto 0.02 X10*3/uL (0.00-0.03); Imm Gran Pct Auto 0.2 % (0.0-0.4); Lymphocytes Absolute Auto 2.7 X10*3/uL (1.2-4.9); Lymphocytes Percent Auto 32.9 % (20-40); Mean Corpuscular HGB Conc 32.3 g/dl (31.0-35.0); Mean Corpuscular Hemoglobin 28.8 pg (27.0-33.0); Mean Corpuscular Volume 89.2 fL (80.0-98.0); Mean Platelet Volume 9.9 fL (9.4-12.3); Monocytes Absolute Auto 0.6 X10*3/uL (0.1-1.2); Monocytes Percent Auto 7.6 % (2-11); Neutrophils Absolute Auto 4.7 x10*3/uL (2.0-8.3); Neutrophils Percent Auto 56.7 % (45-73); Platelet Count 319 X10*3/uL (160-400); Red Blood Count 4.65 X10*6/uL (4.20-5.50); White Blood Count 8.3 X10*3/uL (4.8-10.8)
[2024-04-11 13:56] LABS: Alanine Aminotransferase 21 U/L (0-31); Albumin Level 4.4 g/dL (3.5-5.0); Alkaline Phosphatase 53 U/L (39-117); Anion Gap 14 (12-20); Aspartate Amino Transferase 26 U/L (5-31); Bilirubin Total 0.5 mg/dL (0.0-1.0); Blood Urea Nitrogen 12 mg/dL (9-16); Calcium 9.9 mg/dL (8.4-10.2); Carbon Dioxide 26 mmol/L (22-29); Chloride 108 mmol/L (96-108); Cholesterol 186 mg/dL (<200); Estimated Glomerular Filt Rate > 60; Glucose Fasting 101 mg/dL (60-99); HDL Cholesterol 49 mg/dL (>40); LDL Cholesterol Calculated 110 mg/dL (<100); Potassium 4.1 mmol/L (3.3-5.1); Sodium 144 mmol/L (135-145); Total Protein 7.5 g/dL (6.5-8.0); Triglycerides 138 mg/dL (<150)
[2024-04-11 14:11] LABS: Vitamin D 25-OH Total 89.6 ng/mL (>30)
== END 2024-04-11 10:37 | disposition home or self-care (01) ==
LOC: HO.HMGCLDS 10:36
PROVIDERS: PCP Internal Medicine; Visit Provider Internal Medicine
DX: Z00.00 Encounter for general adult medical examination without abnormal findings (principal); M81.0 Age-related osteoporosis without current pathological fracture; E78.5 Hyperlipidemia, unspecified
CPT/HCPCS: 36415; 80053; 80061; 82306; 85025

== ENCOUNTER 2024-05-12 08:29 | Outpatient (REF) | payer MEDICARE, SELFPAY ==
--- NOTE | ~2024-05-12 | MM_ITS ---
EXAMINATION: BONE DENSITOMETRY CLINICAL INDICATION: Age-related osteoporosis without current pathological fracture. COMPARISON: Baseline BD dated 09/11/2021. TECHNIQUE: Using a [employer] DXA System (software version: 13.1) manufactured by [employer], dual-energy x-ray absorptiometry was performed of the lumbar spine and left hip. The images are of good technical quality. Summary results are attached. FINDINGS: LEFT FEMUR, NECK: Current: BMD 0.857 g/cm2, Z-score 0.1, T-score -1.3, osteopenia. Baseline: BMD 0.751 g/cm2. LEFT FEMUR, TOTAL: Current: BMD 0.890 g/cm2, Z-score 0.2, T-score -0.9, normal, 4.0% increase from baseline (<5% change is not significant). Baseline: BMD 0.856 g/cm2. AP SPINE L1-L4: Current: BMD 0.858 g/cm2, Z-score -1.6, T-score -2.7, osteoporosis, 5.5% increase from baseline (<5% change is not significant). Baseline: BMD 0.813 g/cm2. IDENTIFIED RISK FACTORS: Rheumatoid arthritis, dementia, osteoporosis, recurrent falls, height loss, menopause, hysterectomy, bilateral oophorectomy. HISTORY OF FRACTURE: None listed. MEDICATIONS: Calcium supplements or multivitamin, vitamin D, bisphosphonate. MM/XR DEXA axial skeleton IMPRESSION: 1. DIAGNOSIS: Osteoporosis based on the lowest T-score value of -2.7 in the lumbar spine applying World Health Organization criteria. 2. 10-YEAR FRACTURE RISK PREDICTION, FRAX: According to the guidelines, FRAX calculation should only be performed on patients in the osteopenia bone density category. Therefore, FRAX was not performed on this patient. 3. Treatment Recommendations: NOF guidelines recommend consideration for treatment in postmenopausal women and men age 50 and older presenting with the following: -A hip or vertebral (clinical or morphometric) fracture. -T-score less than or equal to -2.5 at the femoral neck or spine after appropriate evaluation to exclude secondary causes. -Low bone mass at the hip or spine and a 10-year fracture probability by FRAX of greater than or equal to 3% for hip fracture or greater than or equal to 20% for major osteoporotic fracture based on the [place] adapted WHO algorithm. 4. Other Recommendations: All treatment decisions require clinical judgment and consideration of individual patient factors, including patient preferences, comorbidities, previous drug use, risk factors not captured in the FRAX model (e.g. frailty, falls, vitamin D deficiency, increased bone turnover, interval significant decline in bone density) and possible under or overestimation of fracture risk by FRAX. Additional medical evaluation for secondary cause of low bone mineral density may be appropriate. FUTURE SCAN RECOMMENDATION: People with diagnosed cases of osteoporosis or at high risk for fracture should have regular bone mineral density tests. For patients eligible for Medicare, routine testing is allowed once every 2 years. The testing frequency can be increased to one year for patients who have rapidly progressing disease, those who are receiving or discontinuing medical therapy to restore bone mass, or have additional risk factors. Electronically signed by: Vinay Vazquez MD 05/13/2024 01:24 PM EDT
== END 2024-05-12 08:30 | disposition home or self-care (01) ==
LOC: HO.MAMMO 08:29
PROVIDERS: PCP Internal Medicine; Visit Provider Internal Medicine
DX: M81.0 Age-related osteoporosis without current pathological fracture (principal)
CPT/HCPCS: 77080

== ENCOUNTER 2024-10-06 10:04 | Outpatient (AMB) | payer MEDICARE, SELFPAY ==
--- NOTE | 2024-10-06 10:06 | A.OFFVIS_ITS ---
Vital Signs 10/06/24 10:07 Height 4 ft 10 in Weight 190 lb BMI 39.7 BP 130/78 Blood Pressure Location Rt brachial Position Sitting Pulse 74 Pulse Source Pulse Oximeter Pulse Oximetry (%) 95 Oxygen Delivery Method Room Air Intake Visit Reasons: 1 yr F/U Intake Note: Patient presents follow up cognitive/LEANN. 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 ANTIHYSTIMINES Antihistamines Allergy (Unknown, Uncoded 04/11/24 09:53) hives first generation antihystamine Allergy (Unknown, Uncoded 04/11/24 09:53) hives, throat swelling, 3 days of sx unknown seasoning Allergy (Unknown, Uncoded 04/11/24 09:53) hives Medication List - Last Reconciled 10/06/24 by GABBY Stack alendronate 70 mg PO QWEEK ascorbic acid (vitamin C) mg PO cholecalciferol (vitamin D3) 100 mcg PO DAILY coenzyme [id number] E 100-100 mg-unit caps PO fexofenadine 180 mg PO DAILY [fish oil 550 mg 1 tab daily] flu vacc [id number](65yr up)-PF mL IM neomycin-polymyxin B-dexameth drps ophthalmic (eye) rosuvastatin 40 mg PO DAILY sertraline 100 mg PO DAILY triamcinolone acetonide 0.5% 1 appl topical BID 14 days zinc gluconate 30 mg PO DAILY HPI Comments Details: The patient is a 74-year-old female presenting with follow-up for sleep apnea and cognitive impairment. COVID-19 infection, diagnosed on August 02 last year; initial symptoms mimicked a cold, leading to significant fatigue and lasting cognitive issues. The patient's sleep apnea, managed with CPAP, shows good general compliance despite sporadic disruptions due to illness. Carpal tunnel syndrome and trigger finger symptoms persist without new interventions. Her 's worsening dementia adds emotional strain, requiring her caregiving despite her own post-COVID fatigue and cognitive difficulties. Nutrition The patient continues with a regular diet, supplemented by a multivitamin and occasional zinc for two weeks at a time. Vitamin D supplementation prescribed following previous low serum levels. No specific dietary restrictions or allergies noted. Nutrient tests including B12, folate, and zinc to be re- evaluated due to past deficient levels; she reports no current intake of specific B-complex vitamins. PAP review: Does patient have sufficient PAP supplies? Yes Does patient clean PAP supplies on a regular basis? Yes Does the patient use distilled water in their PAP machine water reservoir? Yes PAP compliance report reviewed. Compliance report date range: July 01, 2024 to September 28, 2024 Overall usage: 90% Usage greater than 4 hours: 82% PAP setting: CPAP 6-12 cmH2O with EPR 2, with max pressure 11.8 cm H2O Average usage on days used: 6 hours and 45 minutes Average mask leakage: 3.5 L/min Residual AHI: 5.4 per hour PFSH Medical History (Updated 10/10/24 @ 10:05 by Sheila Nieto MD) Osteoporosis Sinusitis Urge incontinence Postmenopausal Annual physical exam Anxiety Urinary incontinence Hyperlipidemia Hearing loss LEANN on CPAP Depression Surgical History Hx of bilateral cataract extraction Hx of tooth extraction H/O colonoscopy S/P MARIA DEL CARMEN (total abdominal hysterectomy) History of hysterectomy Family History Mother No problems noted. Father Cancer Social History Housing: House Alcohol intake: current Alcohol intake frequency: does not drink Patient Tobacco Use Status: Former Tobacco user e-Cigarette/Vaping Use: Never Used service: No Current occupational status: retired Cognitive needs: No Hearing needs: No Vision needs: Yes Physical Exam Vital Signs: Last Vital Signs Pulse 74 10/06/24 10:07 BP 130/78 10/06/24 10:07 Pulse Ox 95 10/06/24 10:07 Oxygen Delivery Method Room Air 10/06/24 10:07 BMI result Body Mass Index 39.7 Const General: cooperative and no acute distress Orientation/consciousness: patient oriented x3 Resp Effort & Inspection: normal respiratory effort and able to speak in complete sentences Neuro General: patient oriented x3 Cranial nerves: Yes CN's II-XII intact bilaterally Cognition (Neuro): normal cognition Psych Appearance: grossly normal Mental Status: mental status grossly normal Speech and movement: Normal speech and movement present Affect: normal affect Attitude: cooperative Assessment & Plan Assessment & Plan (1) Cognitive dysfunction: Comment: Follow-up with [facility] Neurology Code(s): F09 - Unspecified mental disorder due to known physiological condition Category: Medical (2) LEANN on CPAP: Code(s): G47.33 - Obstructive sleep apnea (adult) (pediatric); Z99.89 - Dependence on other enabling machines and devices Category: Medical Plan Discussion Notes I discussed with the patient the findings of her CPAP compliance report, which indicates effective adherence to recommended therapy with 90% overall compliance. We reviewed CPAP settings including pressure range and EPR, leakage data, and residual AHI without any immediate changes required. Potential adjustments should only be made if symptoms reoccur or if compliance changes. I emphasized the importance of consistent usage and briefly reviewed how her current CPAP settings are effectively controlling her symptoms. We agreed to maintain the current regimen and monitor effectiveness with continued compliance. continue to monitor post COVID fatigue and cognitive difficulties, patient encouraged to reach out to PCP and are us if symptoms persist or worsen. Patient was informed and verbally consented to the use of an ambient scribe for clinic note documentation during this visit. 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 Discussed that results were not c/w a progressive neuro-degenerative d/o. Continue to optimize good self care. Continue donepazil 10mg qd. Check labs for common etiologies Slowly increase physical activity as tolerated. Encourage patient to discuss having [facility], as if his progressive cognitive symptoms are considered service-connected, they may be eligible for supportive services. Encouraged patient to take some time for herself on a regular basis to reduce risk for caregiver strain If post COVID fatigue cognitive difficulties persist or worsen, notify us her PCP. For LEANN: - Continue to use APAP 6-12 cmH2O with EPR nightly with a goal of greater than 4 hours nightly, as patient is experiencing good clinical effect from use. - Clean and change PAP supplies routinely, including filters, masks, tubing, and water reservoir. - Use distilled water in PAP water resorvoir. f/u in 6-12 months or sooner prn Orders: Orders Methylmalonic Acid 10/08/24 F09 - Unspecified mental disorder due to known physiological condition, R20.0 - Anesthesia of skin, R20.2 - Paresthesia of skin, R53.83 - Other fatigue Vitamin B6 10/08/24 F09 - Unspecified mental disorder due to known physiological condition, R20.0 - Anesthesia of skin, R20.2 - Paresthesia of skin, R53.83 - Other fatigue Homocysteine 10/08/24 F09 - Unspecified mental disorder due to known physiological condition, R20.0 - Anesthesia of skin, R20.2 - Paresthesia of skin, R53.83 - Other fatigue Vitamin B1 10/08/24 F09 - Unspecified mental disorder due to known physiological condition, R20.0 - Anesthesia of skin, R20.2 - Paresthesia of skin, R53.83 - Other fatigue Zinc 10/08/24 F09 - Unspecified mental disorder due to known physiological condition, R20.0 - Anesthesia of skin, R20.2 - Paresthesia of skin, R53.83 - Other fatigue Copper, plasma 10/08/24 F09 - Unspecified mental disorder due to known physiological condition, R20.0 - Anesthesia of skin, R20.2 - Paresthesia of skin, R53.83 - Other fatigue Coding Level of Care Code Est Pt Level 4 (11795) Diagnoses Cognitive dysfunction F09 LEANN on CPAP G47.33; Z99.89
[2024-10-06 10:07] VITALS: BP 130/78; PULSE 74; O2SAT 95; BMI 39.7
== END 2024-10-06 10:55 | disposition home or self-care (01) ==
PROVIDERS: PCP Internal Medicine; Visit Provider Nurse Practitioner Family
DX: R41.89 Other symptoms and signs involving cognitive functions and awareness (principal); G47.33 Obstructive sleep apnea (adult) (pediatric); Z99.89 Dependence on other enabling machines and devices
CPT/HCPCS: 99214

== ENCOUNTER → 2024-10-06 10:04 | Outpatient (BNVA) | payer MEDICARE, SELFPAY | PROVIDERS: PCP Internal Medicine; Visit Provider Nurse Practitioner Family | DX: F09 Unspecified mental disorder due to known physiological condition (principal); G47.33 Obstructive sleep apnea (adult) (pediatric); Z99.89 Dependence on other enabling machines and devices | CPT/HCPCS: 99212 ==

== ENCOUNTER 2024-10-07 08:34 | Outpatient (REF) | payer MEDICARE, SELFPAY ==
[2024-10-07 10:11] LABS: MANUAL DIFF FLAG NO
[2024-10-07 10:20] LABS: Basophils Percent Auto 0.6 % (0-2); Eosinophils Absolute Auto 0.1 X10*3/uL (0.0-0.4); Hematocrit 39.1 % (37.0-47.0); Hemoglobin 12.7 g/dl (12.0-16.0); Imm Gran Abs Auto 0.01 X10*3/uL (0.00-0.03); Imm Gran Pct Auto 0.1 % (0.0-0.4); Lymphocytes Absolute Auto 2.8 X10*3/uL (1.2-4.9); Mean Corpuscular HGB Conc 32.5 g/dl (31.0-35.0); Mean Corpuscular Hemoglobin 28.5 pg (27.0-33.0); Mean Corpuscular Volume 87.7 fL (80.0-98.0); Mean Platelet Volume 9.8 fL (9.4-12.3); Monocytes Absolute Auto 0.6 X10*3/uL (0.1-1.2); Monocytes Percent Auto 8.4 % (2-11); Neutrophils Absolute Auto 3.6 x10*3/uL (2.0-8.3); Neutrophils Percent Auto 49.9 % (45-73); Platelet Count 286 X10*3/uL (160-400); Red Blood Count 4.46 X10*6/uL (4.20-5.50); Red Cell Distribution Width 13.3 % (11.0-16.0); White Blood Count 7.1 X10*3/uL (4.8-10.8)
[2024-10-07 10:38] LABS: Alanine Aminotransferase 20 U/L (0-31); Albumin Level 4.2 g/dL (3.5-5.0); Alkaline Phosphatase 50 U/L (39-117); Anion Gap 10 (12-20); Aspartate Amino Transferase 26 U/L (5-31); Bilirubin Total 0.5 mg/dL (0.0-1.0); Blood Urea Nitrogen 13 mg/dL (9-16); Calcium 9.3 mg/dL (8.4-10.2); Carbon Dioxide 26 mmol/L (22-29); Chloride 109 mmol/L (96-108); Cholesterol 172 mg/dL (<200); Estimated Glomerular Filt Rate > 60; Glucose Fasting 112 mg/dL (60-99); HDL Cholesterol 47 mg/dL (>40); LDL Cholesterol Calculated 97 mg/dL (<100); Potassium 4.1 mmol/L (3.3-5.1); Sodium 141 mmol/L (135-145); Total Protein 7.3 g/dL (6.5-8.0); Triglycerides 142 mg/dL (<150)
[2024-10-07 10:59] LABS: TSH reflex Free T4 2.51 uIU/mL (0.32-4.0); Vitamin D 25-OH Total 89.5 ng/mL (>30)
[2024-10-07 11:05] LABS: Vitamin B12 536 pg/mL (200-900)
== END 2024-10-07 08:35 | disposition home or self-care (01) ==
LOC: HO.HMGCLDS 08:34
PROVIDERS: PCP Internal Medicine; Referring Provider Nurse Practitioner Family; Visit Provider Internal Medicine
DX: E55.9 Vitamin D deficiency, unspecified (principal); F03.90 Unspecified dementia, unspecified severity, without behavioral disturbance, psychotic disturbance, mood disturbance, and anxiety; E78.5 Hyperlipidemia, unspecified; M81.0 Age-related osteoporosis without current pathological fracture
CPT/HCPCS: 36415; 80053; 80061; 82306; 82607; 82746; 84443; 85025

== ENCOUNTER 2024-10-08 07:08 | Outpatient (REF) | payer MEDICARE, SELFPAY ==
[2024-10-10 16:22] LABS: Homocysteine 5.4 umol/L (<10.4)
[2024-10-11 18:22] LABS: Zinc 70 mcg/dL (60-130)
[2024-10-12 05:24] LABS: Copper, plasma 105 mcg/dL (70-175)
[2024-10-12 10:43] LABS: Methylmalonic Acid 99 nmol/L (69-390)
[2024-10-13 17:03] LABS: Vitamin B6 18.2 ng/mL (2.1-21.7)
[2024-10-16 15:12] LABS: Vitamin B1 15 nmol/L (8-30)
== END 2024-10-08 07:09 | disposition home or self-care (01) ==
LOC: HO.LAB 07:08
PROVIDERS: PCP Internal Medicine; Visit Provider Nurse Practitioner Family
DX: F09 Unspecified mental disorder due to known physiological condition (principal); R20.0 Anesthesia of skin; R20.2 Paresthesia of skin; R53.83 Other fatigue; Z13.6 Encounter for screening for cardiovascular disorders
CPT/HCPCS: 36415; 82525; 83090; 83921; 84207; 84425; 84630

== ENCOUNTER 2024-10-10 09:25 | Outpatient (AMB) | payer MEDICARE, SELFPAY ==
[2024-10-10 09:36] VITALS: BP 138/72; PULSE 72; RESP 16; O2SAT 97; BMI 39.8
--- NOTE | 2024-10-10 09:36 | MHC.PC.OV ---
Vital Signs 10/10/24 09:36 Height 4 ft 10 in Weight 190 lb 8 oz BMI 39.8 BP 138/72 Blood Pressure Location Lt brachial Position Sitting Respiration 16 Pulse 72 Pulse Source Pulse Oximeter Pulse Oximetry (%) 97 Oxygen Delivery Method Room Air Intake Visit Reasons: office visit Allergies diphenhydramine [From BENADRYL] Allergy (Severe, Verified 10/10/24 09:37) HIVES,THROAT SWELLING x3 DAYS-ALL FIRST GEN. ANTIHYSTIMINES Antihistamines Allergy (Unknown, Uncoded 04/11/24 09:53) hives first generation antihystamine Allergy (Unknown, Uncoded 04/11/24 09:53) hives, throat swelling, 3 days of sx unknown seasoning Allergy (Unknown, Uncoded 04/11/24 09:53) hives Medication List - Last Reconciled 10/10/24 by Sheila Nieto MD alendronate 70 mg PO QWEEK ascorbic acid (vitamin C) mg PO cholecalciferol (vitamin D3) 100 mcg PO DAILY coenzyme [id number] E 100-100 mg-unit caps PO fexofenadine 180 mg PO DAILY [fish oil 550 mg 1 tab daily] rosuvastatin 40 mg PO DAILY sertraline 100 mg PO DAILY triamcinolone acetonide 0.5% 1 appl topical BID 14 days zinc gluconate 30 mg PO DAILY Tobacco use date assessed: 10/10/24 Fall risk assessment: No Falls in past year Last assessed Fall Risk: 10/10/24 Dental Screening Dental Screen Date: 10/10/24 Did you have a dental visit in the last 12 months?: Yes Did you have a dental problem in the last 6 months where you did not have access to dental care?: No Was dental information given to patient?: Patient has dentist HPI office visit HPI Details Pt presents for f/u hyperlipid, osteoporosis, anxiety and depression, stable on meds. Patient is use a CPAP machine for obstructive sleep apnea and reports more restful sleep PFSH Medical History Osteoporosis Sinusitis Urge incontinence Postmenopausal Annual physical exam Anxiety Urinary incontinence Hyperlipidemia Hearing loss LEANN on CPAP Depression Surgical History Hx of bilateral cataract extraction Hx of tooth extraction H/O colonoscopy S/P MARIA DEL CARMEN (total abdominal hysterectomy) History of hysterectomy Family History Mother No problems noted. Father Cancer Social History Housing: House Alcohol intake: current Alcohol intake frequency: does not drink Patient Tobacco Use Status: Former Tobacco user e-Cigarette/Vaping Use: Never Used service: No Current occupational status: retired Cognitive needs: No Hearing needs: No Vision needs: Yes Questionnaire PHQ-9 Over the last 2 weeks, how often have you been bothered by any of the following problems? 1. Little interest or pleasure in doing things: not at all 2. Feeling down, depressed, or hopeless: several days 3. Trouble falling or staying asleep, or sleeping too much: several days 4. Feeling tired or having little energy: several days 5. Poor appetite or overeating: several days 6. Feeling bad about yourself - or that you are a failure or have let yourself or your family down: several days 7. Trouble concentrating on things, such as reading the newspaper or watching television: several days 8. Moving or speaking so slowly that other people could have noticed. Or the opposite - being so fidgety or restless that you have been moving around a lot more than usual: not at all 9. Thoughts that you would be better off or of hurting yourself in some way: not at all Total score: 6 Depression Screening Interpretation: Negative Depression Screening Done: Yes 80792 - PHQ-9 Billing: Yes Source: Developed by Drs. Lakhwinder Roblero, Brittany Martin, Liu Frankel and colleagues, with an educational kathleen from [employer]. Thrive Questionnaire Date Thrive assessed: 10/10/24 I am a: Patient What is your living situation today?: I have a steady place to live Within the past 12 months, did the food you bought not last and you didn't have the money to get more?: Never true Within the past 12 months, did you worry whether your food would run out before you got money to buy more?: Never true Do you have trouble paying for medicines?: No Do you have trouble getting transportation to medical appointments?: No Do you have trouble paying your heating and electricity bill?: No Do you have trouble taking care of your child, family member or friend?: No Do you have trouble with day-to-day activities such as bathing, preparing meals, shopping, managing finances, etc.?: No Are you currently unemployed and looking for a job?: No Are you interested in more education?: No Please select the resources that you would like help with: None Currently or been in a relationship where the following occur: No concerns reported THRIVE Score: 0 AUDIT C Alcohol Use Questionnaire (AUDIT-C) 1. How often do you have a drink containing alcohol?: Never 3. How often do you have six or more drinks on one occasion?: Never Total Score: 0 Score Reviewed/Action Taken: Yes CATIA-7 AMB Questionnaire CATIA-7 Date CATIA - 7 assessed: 10/10/24 Feeling nervous, anxious, or on edge: 1 = Several days Not being able to stop or control worryin = Several days Worrying too much about different things: 1 = Several days Trouble relaxin = Several days Being so restless that it is hard to sit still: 0 = Not at all Becoming easily annoyed or irritable: 1 = Several days Feeling afraid as if something awful might happen: 1 = Several days Total CATIA-7 score (0-4 normal; 5-9 mild; 10-14 moderate; 15-21 severe): 6 Source: Developed by Drs. Lakhwinder Roblero, Brittany Martin, Liu Frankel and colleagues, with an educational kathleen from [employer]. CATIA-7 Assessment Billing CATIA-7 Assessment Tool: CATIA-7 Assessment 57485 Review of Systems Const All systems reviewed & are unremarkable except as noted in HPI and below Eyes Reports no additional complaints ENT Reports no additional complaints Card Reports no additional complaints Resp Reports no additional complaints GI Reports no additional complaints Reports no additional complaints Physical exam (Primary Care) Vital Signs: Last Vital Signs Pulse 72 10/10/24 09:36 Resp 16 10/10/24 09:36 BP 138/72 10/10/24 09:36 Pulse Ox 97 10/10/24 09:36 Oxygen Delivery Method Room Air 10/10/24 09:36 BMI result Body Mass Index 39.8 Tobacco/Smoking Status: Tobacco use Status Tobacco use date assessed 10/10/24 10/10/24 09:39 Patient Tobacco Use Status Former Tobacco user 10/10/24 09:39 e-Cigarette/Vaping Use Never Used 10/10/24 09:39 PHQ-9: PHQ-9 Score PHQ-9: Total score 6 10/10/24 09:43 Depression Screening Interpretation: Negative Thrive Assessment: Date of Thrive Assessment Date Thrive assessed 10/10/24 10/10/24 09:43 Currently or been in a relationship where the following occur: No concerns reported Const General: no acute distress HENMT Ears: hearing grossly normal bilaterally Eyes General: appearance normal, both eyes and all related structures Resp Effort & Inspection: normal respiratory effort Auscultation: clear to auscultation bilaterally Cardio Rhythm: regular rhythm Heart sounds: S1 normal heart sound present and S2 normal heart sound present GI Inspection: Yes normal to inspection Palpation (GI): Soft to palpation Percussion: Yes normal to percussion Coding Level of Care Code Est Pt Level 4 (14613) Diagnoses Osteoporosis M81.0 LEANN on CPAP G47.33; Z99.89 Hyperlipidemia E78.5 Anxiety F41.9 Vitamin D deficiency E55.9 Additional Codes CATIA-7 Assessment Billing - CATIA-7 Assessment Tool: CATIA-7 Assessment 53245 ([id number]) PHQ-9 - 37059 - PHQ-9 Billing: Yes ([id number]) Assessment & Plan Assessment & Plan (1) Osteoporosis: Comment: DEXA 10/22 T score -3.1, 12/06/21 start Fosamax 70 mg, DEXA 05/2024 5.5 % improvement in AP spine, cont Fosamax for 2 more years Code(s): M81.0 - Age-related osteoporosis without current pathological fracture Category: Medical Plan: Continu vitamin D Fosamax and weight-bearing exercises (2) LEANN on CPAP: Code(s): G47.33 - Obstructive sleep apnea (adult) (pediatric); Z99.89 - Dependence on other enabling machines and devices Category: Medical Plan: Continue CPAP (3) Hyperlipidemia: Code(s): E78.5 - Hyperlipidemia, unspecified Category: Medical Plan: Continue rosuvastatin (4) Anxiety: Code(s): F41.9 - Anxiety disorder, unspecified Category: Medical Plan: Continue sertraline, follow-up in 6 months with a fasting labs before (5) Vitamin D deficiency: Code(s): E55.9 - Vitamin D deficiency, unspecified Category: Medical Plan: Continue vitamin-D supplement Orders: Orders Vitamin D 25-OH Total 6 Months E55.9 - Vitamin D deficiency, unspecified, E78.5 - Hyperlipidemia, unspecified, M81.0 - Age-related osteoporosis without current pathological fracture Comprehensive [place]. Panel Fast 6 Months E55.9 - Vitamin D deficiency, unspecified, E78.5 - Hyperlipidemia, unspecified, M81.0 - Age-related osteoporosis without current pathological fracture Hemoglobin A1c 6 Months E55.9 - Vitamin D deficiency, unspecified, E78.5 - Hyperlipidemia, unspecified, M81.0 - Age-related osteoporosis without current pathological fracture, R73.9 - Hyperglycemia, unspecified Complete Blood Count Auto Diff 6 Months E55.9 - Vitamin D deficiency, unspecified, E78.5 - Hyperlipidemia, unspecified, M81.0 - Age-related osteoporosis without current pathological fracture Medications: Refilled sertraline 100 mg PO DAILY 90 tabs 3RF rosuvastatin 40 mg PO DAILY 90 tabs 3RF alendronate 70 mg PO QWEEK 8 tabs 4RF
== END 2024-10-10 10:05 | disposition home or self-care (01) ==
PROVIDERS: PCP Internal Medicine; Visit Provider Internal Medicine
DX: M81.0 Age-related osteoporosis without current pathological fracture (principal); G47.33 Obstructive sleep apnea (adult) (pediatric); Z99.89 Dependence on other enabling machines and devices; E78.5 Hyperlipidemia, unspecified; F41.9 Anxiety disorder, unspecified; E55.9 Vitamin D deficiency, unspecified

== ENCOUNTER → 2024-10-10 09:25 | Outpatient (BNVA) | payer MEDICARE, SELFPAY | PROVIDERS: PCP Internal Medicine; Visit Provider Internal Medicine | DX: M81.0 Age-related osteoporosis without current pathological fracture (principal); G47.33 Obstructive sleep apnea (adult) (pediatric); E78.5 Hyperlipidemia, unspecified; F41.9 Anxiety disorder, unspecified; E55.9 Vitamin D deficiency, unspecified; Z99.89 Dependence on other enabling machines and devices | CPT/HCPCS: 96127; 99212 ==

== ENCOUNTER 2025-01-04 10:15 | Outpatient (REF) | payer MEDICARE, SELFPAY | END 2025-01-04 10:16 | disposition home or self-care (01) | LOC: HO.MAMMO 10:15 | PROVIDERS: PCP Internal Medicine; Visit Provider Internal Medicine | DX: Z12.31 Encounter for screening mammogram for malignant neoplasm of breast (principal) | CPT/HCPCS: 77063; 77067 ==

== ENCOUNTER → 2025-01-04 10:30 | Outpatient (BNV) | payer MEDICARE, SELFPAY | PROVIDERS: PCP Internal Medicine; Visit Provider Internal Medicine | DX: Z12.31 Encounter for screening mammogram for malignant neoplasm of breast (principal) | CPT/HCPCS: 77063; 77067 ==

== ENCOUNTER 2025-04-12 09:26 | Outpatient (AMB) | payer MEDICARE, SELFPAY ==
[2025-04-12 09:43] VITALS: BP 140/70; PULSE 72; O2SAT 97; BMI 38.2
--- NOTE | 2025-04-12 09:43 | A.OFFVIS_ITS ---
Vital Signs 04/12/25 09:43 Height 4 ft 10 in Weight 183 lb BMI 38.2 BP 140/70 H Blood Pressure Location Rt brachial Position Sitting Pulse 72 Pulse Source Pulse Oximeter Pulse Oximetry (%) 97 Oxygen Delivery Method Room Air Intake Visit Reasons: 6 mo follow up Intake Note: Patient presents follow up cognitive/LEANN. 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 ANTIHYSTIMINES Antihistamines Allergy (Unknown, Uncoded 04/12/25 09:46) hives first generation antihystamine Allergy (Unknown, Uncoded 04/12/25 09:46) hives, throat swelling, 3 days of sx unknown seasoning Allergy (Unknown, Uncoded 04/12/25 09:46) hives Medication List - Last Reconciled 04/12/25 by GABBY Stack alendronate 70 mg PO QWEEK ascorbic acid (vitamin C) mg PO cholecalciferol (vitamin D3) 100 mcg PO DAILY coenzyme [id number] E 100-100 mg-unit caps PO fexofenadine 180 mg PO DAILY [fish oil 550 mg 1 tab daily] rosuvastatin 40 mg PO DAILY sertraline 100 mg PO DAILY triamcinolone acetonide 0.5% 1 appl topical BID 14 days zinc gluconate 30 mg PO DAILY HPI Comments Details: 74-yr-old female presents for follow-up of LEANN and memory difficulties. Patient reports she is having some increased STM and word finding difficulties, and is not as confident with driving directions. She has a strong paternal family h/o Alzheimer's. If she were to be a candidate, she states she would be interested in trying anti amyloid targeted therapies. She states she is sleeping ok, but sleep can vary depending on her or her 's needs. She states she is complaint w/ her CPAP. 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 PAP therapy review: Does patient have sufficient PAP supplies? Yes Does patient clean PAP supplies on a regular basis? Yes Does the patient use distilled water in their PAP machine water reservoir? Yes PAP compliance report reviewed. Compliance report date range: 01/12/2025 to 04/11/2025 Overall usage: 88% Usage greater than 4 hours: 81 % Average usage on days used: 6 hours and 21 minutes PAP setting: CPAP 6-12 cmH2O with EPR 2, with max pressure 11.9 cm H2O Average mask leakage: 3.7 L/min Maximum mask leakage: 16 L/min Residual AHI: 4.9 per hour PFSH Medical History (Updated 10/10/24 @ 10:05 by Sheila Nieto MD) Osteoporosis Sinusitis Urge incontinence Postmenopausal Annual physical exam Anxiety Urinary incontinence Hyperlipidemia Hearing loss LEANN on CPAP Depression Surgical History Hx of bilateral cataract extraction Hx of tooth extraction H/O colonoscopy S/P MARIA DEL CARMEN (total abdominal hysterectomy) History of hysterectomy Family History Mother No problems noted. Father Cancer Social History Housing: House Alcohol intake: current Alcohol intake frequency: does not drink Patient Tobacco Use Status: Former Tobacco user e-Cigarette/Vaping Use: Never Used service: No Current occupational status: retired Cognitive needs: No Hearing needs: No Vision needs: Yes Physical Exam Vital Signs: Last Vital Signs Pulse 72 04/12/25 09:43 BP 140/70 H 04/12/25 09:43 Pulse Ox 97 04/12/25 09:43 Oxygen Delivery Method Room Air 04/12/25 09:43 BMI result Body Mass Index 38.2 Const General: cooperative and no acute distress Orientation/consciousness: patient oriented x3 Resp Effort & Inspection: normal respiratory effort and able to speak in complete sentences Neuro General: patient oriented x3 Cranial nerves: Yes CN's II-XII intact bilaterally Cognition (Neuro): normal cognition Psych Appearance: grossly normal Mental Status: mental status grossly normal Speech and movement: Normal speech and movement present Affect: normal affect Attitude: cooperative Orientation What is the (year) (season) (date) (day) (month)?: year, season, day and month Where are we (state) (county) (town or city) (hospital) (floor)?: state, county, town or city, hospital/clinic and floor Registration Name of 3 unrelated objects clearly and slowly, then ask patient to repeat all 3 of them. (1st repeat determines score. Make sure they can repeat all three): object 1, object 2 and object 3 Attention & Calculation (CHOOSE ONE) Spell WORLD backwards (DLROW): 5 letters Recall Ask patient to repeat the 3 items from question #3.: object 3 Language Show patient a wristwatch & ask what it is. Repeat for pencil.: watch and pencil Ask the patient to repeat the phrase 'No ifs, ands, or buts' after you.: correct Ask the patient to 'take a piece of paper with their right hand' 'fold paper in half' 'place paper on floor': take paper in right hand, fold paper in half and place paper on floor Print the sentence 'CLOSE YOUR EYES' on a piece. If patient actually closes eyes then score.: followed written direction Give patient a blank piece of paper & ask to write a sentence. Score if it contains a noun & verb.: sentence contains subject and verb Ask patient to copy figure of intersecting pentagons exactly. Score if all 10 angles & 2 intersects are included.: all 10 angles present & 2 are intersected Score Score: 27 Assessment & Plan Assessment & Plan (1) Cognitive dysfunction: Comment: Follow-up with [facility] Neurology Code(s): F09 - Unspecified mental disorder due to known physiological condition Category: Medical (2) LEANN on CPAP: Code(s): G47.33 - Obstructive sleep apnea (adult) (pediatric); Z99.89 - Dependence on other enabling machines and devices Category: Medical Plan For cognitive disorder: * MMSE 27/30 (incorrectly stated today's date has April 09, missed 2/3 words on the word recall. * Most recent neuro-psych report- Unspecified 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 * We will order brain MRI with and without contrast to assess for underlying etiologies of progressive cognitive difficulties. * Reviewed October 2024 labs: * Vitamin B12 536 WNL, folate 14 WNL, vitamin-D 89.5 WNL, TSH 2.51 WNL, vitamin B1 15 WNL, vitamin B6 18 WNL * Engage in regular physical activity as tolerated. * Engage in regular social cognitively stimulating activities * Previously discussed benefits of [facility], as if his progressive cognitive symptoms are considered service-connected, they may be eligible for supportive services. Encouraged patient to take some time for herself on a regular basis to reduce risk for caregiver strain For ELANN: * Continue to use APAP 6-12 cmH2O with EPR nightly with a goal of greater than 4 hours nightly, as patient is experiencing good clinical effect from use. * Clean and change PAP supplies routinely, including filters, masks, tubing, and water reservoir. * Use distilled water in PAP water resorvoir. Will follow-up upon review of above and patient to follow-up in clinic in 6 months or sooner prn. Orders: Orders MR head/brain wo/w con Today E78.5 - Hyperlipidemia, unspecified, F09 - Unspecified mental disorder due to known physiological condition, R21 - Rash and other nonspecific skin eruption, R73.9 - Hyperglycemia, unspecified Coding Level of Care Code Est Pt Level 4 (89889) Diagnoses Cognitive dysfunction F09 LEANN on CPAP G47.33; Z99.89
== END 2025-04-12 10:37 | disposition home or self-care (01) ==
LOC: HO.HSMS 09:29
PROVIDERS: PCP Internal Medicine; Visit Provider Nurse Practitioner Family
DX: R41.89 Other symptoms and signs involving cognitive functions and awareness (principal); G47.33 Obstructive sleep apnea (adult) (pediatric); Z99.89 Dependence on other enabling machines and devices
CPT/HCPCS: 99214

== ENCOUNTER → 2025-04-12 09:26 | Outpatient (BNVA) | payer MEDICARE, SELFPAY | PROVIDERS: PCP Internal Medicine; Visit Provider Nurse Practitioner Family | DX: G47.33 Obstructive sleep apnea (adult) (pediatric) (principal); F09 Unspecified mental disorder due to known physiological condition; Z99.89 Dependence on other enabling machines and devices | CPT/HCPCS: 99212 ==

== ENCOUNTER 2025-04-24 12:45 | Outpatient (REF) | payer MEDICARE, SELFPAY ==
--- NOTE | ~2025-04-24 | MR_ITS ---
EXAMINATION: MR BRAIN WITHOUT AND WITH CONTRAST CLINICAL INFORMATION: Memory issues; unspecified mental disorder due to known physiological condition. COMPARISON: None available. TECHNIQUE: Multiplanar, multisequence MRI of the brain was obtained before and after the intravenous administration of 9 mL Gadavist. Examination performed on a 1.5 Diana Siemens high-field unit. FINDINGS: There is no diffusion restriction. There is no intracranial hemorrhage, acute infarction, mass effect, or edema. Ventricles, sulci, and cisterns are mildly diffusely prominent, in keeping with age-related cerebral and cerebellar volume loss. No asymmetric pattern of atrophy. No shift of midline. No abnormal hemosiderin deposition is identified. There are a few scattered punctate foci of white matter T2 hyperintensity in the periventricular, subcortical, and hemispheric deep white matter. These foci are nonspecific but statistically most likely relate to small vessel ischemic changes. There is a small enhancing extra-axial mass measuring 10 x 5 x 8 mm overlying the left aspect of the anterior falx, consistent with a small meningioma. No associated mass effect. There is an enhancing developmental venous anomaly in the right posterior centrum semiovale. There is no additional abnormal intra or extra-axial enhancement after the administration of contrast. Midline structures appear normally formed. The pituitary gland appears normal. Posterior fossa structures appear normal. Cerebellar tonsils are appropriately located. Major flow voids are preserved within the skull base. The globes and orbital contents demonstrate no abnormalities. There are bilateral lens replacements. Paranasal sinuses demonstrate complete T2 hyperintense opacification of the left frontal and maxillary sinuses, and anterior left ethmoid sinuses. Remainder of the paranasal sinuses are aerated normally. The mastoids and tympanic cavities are normally aerated. Extracranial soft tissues demonstrate no abnormalities. No suspicious bone marrow changes are evident. Atlantoaxial joint demonstrates mild to moderate degenerative change. MR/MR head/brain wo/w con IMPRESSION: 1. No evidence of intracranial hemorrhage, acute infarction, mass effect, or edema. 2. Age-appropriate cerebral and cerebellar volume loss without asymmetric pattern of atrophy. 3. There is a small 10 x 5 x 8 mm left parafalcine meningioma without underlying mass effect. 4. Opacification of the left frontal, maxillary, and left anterior ethmoid sinuses. 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 Electronically signed by: Tim Zhang MD 04/24/2025 02:10 PM EDT RP
== END 2025-04-24 12:46 | disposition home or self-care (01) ==
LOC: HO.MRI 12:45
PROVIDERS: Visit Provider Nurse Practitioner Family
DX: R21 Rash and other nonspecific skin eruption (principal); F09 Unspecified mental disorder due to known physiological condition; E78.5 Hyperlipidemia, unspecified; R73.9 Hyperglycemia, unspecified
CPT/HCPCS: 70553; A9585

== ENCOUNTER → 2025-04-24 12:52 | Outpatient (BNV) | payer MEDICARE, SELFPAY | PROVIDERS: Visit Provider Radiology Diagnostic Radiology | DX: D32.0 Benign neoplasm of cerebral meninges (principal) | CPT/HCPCS: 70553 ==

== ENCOUNTER 2025-04-28 09:08 | Outpatient (AMB) | payer MEDICARE, SELFPAY ==
--- NOTE | 2025-04-28 08:56 | A.OFFVIS_ITS ---
Intake Visit Reasons: Brain MRI results Intake Note: Patient presents follow up cognitive/LEANN. 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 ANTIHYSTIMINES Antihistamines Allergy (Unknown, Uncoded 04/12/25 09:46) hives first generation antihystamine Allergy (Unknown, Uncoded 04/12/25 09:46) hives, throat swelling, 3 days of sx unknown seasoning Allergy (Unknown, Uncoded 04/12/25 09:46) hives Medication List - Last Reconciled 04/28/25 by GABBY Stack alendronate 70 mg PO QWEEK ascorbic acid (vitamin C) mg PO cholecalciferol (vitamin D3) 100 mcg PO DAILY coenzyme Q02-pztirml E 100-100 mg-unit caps PO fexofenadine 180 mg PO DAILY [fish oil 550 mg 1 tab daily] rosuvastatin 40 mg PO DAILY sertraline 100 mg PO DAILY triamcinolone acetonide 0.5% 1 appl topical BID 14 days HPI Comments Details: 74-yr-old female presents for tele-video visit to discuss recent MRI results, which were ordered to assess for secondary etiologies of memory difficulties in setting of known LEANN on CPAP. 04/24/2025 MR/MR head/brain wo/w con 1. No evidence of intracranial hemorrhage, acute infarction, mass effect, or edema. 2. Age-appropriate cerebral and cerebellar volume loss without asymmetric pattern of atrophy. 3. There is a small 10 x 5 x 8 mm left parafalcine meningioma without underlying mass effect. 4. Opacification of the left frontal, maxillary, and left anterior ethmoid sinuses. 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 Patient reports that she is alwyas prone to allergy symptoms throughout the year. Has just started to use a pressuirezed saline nasal sprays. Has been taking Allerist 24 hr allergy tx. Can wake up feeling nasal/sinus blockage afte rusing ehr CPAP. She sometimes has a frontal mild transient headache. 04/12/2025, previous HPI: Patient reports she is having some increased STM and word finding difficulties, and is not as confident with driving directions. She has a strong paternal family h/o Alzheimer's. If she were to be a candidate, she states she would be interested in trying anti amyloid targeted therapies. She states she is sleeping ok, but sleep can vary depending on her or her 's needs. She states she is complaint w/ her CPAP. 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 PAP therapy review: Does patient have sufficient PAP supplies? Yes Does patient clean PAP supplies on a regular basis? Yes Does the patient use distilled water in their PAP machine water reservoir? Yes PAP compliance report reviewed. Compliance report date range: 01/12/2025 to 04/11/2025 Overall usage: 88% Usage greater than 4 hours: 81 % Average usage on days used: 6 hours and 21 minutes PAP setting: CPAP 6-12 cmH2O with EPR 2, with max pressure 11.9 cm H2O Average mask leakage: 3.7 L/min Maximum mask leakage: 16 L/min Residual AHI: 4.9 per hour PFSH Medical History (Updated 04/28/25 @ 13:45 by GABBY Stack) Osteoporosis Sinusitis Urge incontinence Postmenopausal Annual physical exam Anxiety Urinary incontinence Hyperlipidemia Hearing loss LEANN on CPAP Depression Surgical History Hx of bilateral cataract extraction Hx of tooth extraction H/O colonoscopy S/P MARIA DEL CARMEN (total abdominal hysterectomy) History of hysterectomy Family History Mother No problems noted. Father Cancer Social History Housing: House Alcohol intake: current Alcohol intake frequency: does not drink Patient Tobacco Use Status: Former Tobacco user e-Cigarette/Vaping Use: Never Used service: No Current occupational status: retired Cognitive needs: No Hearing needs: No Vision needs: Yes Physical Exam Const General: cooperative and no acute distress Orientation/consciousness: patient oriented x3 Resp Effort & Inspection: normal respiratory effort and able to speak in complete sentences Neuro General: patient oriented x3 Cognition (Neuro): normal cognition Psych Appearance: grossly normal Mental Status: mental status grossly normal Affect: normal affect Attitude: cooperative Telehealth Telehealth Telehealth Platform: [employer] Location of provider rendering services: practice address Location of patient: address on file Patient Identification confirmed using: Name, : Yes Telehealth method: video Patient verbally consented to treatment: Yes Patient verbally consented to billing insurance company: Yes Patient informed of any privacy concerns related to visit: Yes Minutes spent on Phone/Video with Pt.: 21 Assessment & Plan Assessment & Plan (1) Cognitive dysfunction: Comment: Follow-up with [facility] Neurology Code(s): F09 - Unspecified mental disorder due to known physiological condition Category: Medical (2) LEANN on CPAP: Code(s): G47.33 - Obstructive sleep apnea (adult) (pediatric); Z99.89 - Dependence on other enabling machines and devices Category: Medical (3) Opacified maxillary sinus: Code(s): R93.0 - Abnormal findings on diagnostic imaging of skull and head, not elsewhere classified Category: Medical (4) Opacification of frontal sinus: Code(s): R93.0 - Abnormal findings on diagnostic imaging of skull and head, not elsewhere classified Category: Medical (5) Meningioma, cerebral: Code(s): D32.0 - Benign neoplasm of cerebral meninges Category: Medical (6) Seasonal and perennial allergic rhinitis: Code(s): J30.89 - Other allergic rhinitis; J30.2 - Other seasonal allergic rhinitis Category: Medical (7) Opacification of ethmoid sinus: Code(s): R93.0 - Abnormal findings on diagnostic imaging of skull and head, not elsewhere classified Category: Medical Plan Reviewed interval brain MRI w/o contrast: The results showed age-related symmetric cerebral and cerebellar volume loss, a small 10 x 5 x 8 mm left parafalcine meningioma without an underlying mass effect, and opacification of the left frontal, maxillary, and left anterior ethmoid sinuses. Regarding the opacification of the left frontal, maxillary, and anterior ethmoid sinuses, I will request an allergy and an ENT consult. Continue pressurized saline nasal spray. Regarding the small left parafalcine meningioma We will request a repeat brain MRI with and without contrast in 6 months. The patient is advised to notify us of any new or concerning symptoms, such as worsening headaches. For cognitive disorder: * MMSE 27/30 (incorrectly stated today's date has April 09, missed 2/3 word s on the word recall. * Most recent neuro-psych report- Unspecified 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 * Brain MRI did not show any evidence for an underlying etiologies of progressive cognitive difficulties. * October 2024 labs: * Vitamin B12 536 WNL, folate 14 WNL, vitamin-D 89.5 WNL, TSH 2.51 WNL, vitamin B1 15 WNL, vitamin B6 18 WNL * Engage in regular physical activity as tolerated. * Engage in regular social cognitively stimulating activities * Previously discussed benefits of [facility], as if his progressive cognitive symptoms are considered service-connected, they may be eligible for supportive services. Encouraged patient to take some time for herself on a regular basis to reduce risk for caregiver strain For LEANN: * Continue to use APAP 6-12 cmH2O with EPR nightly with a goal of greater than 4 hours nightly, as patient is experiencing good clinical effect from use. * Clean and change PAP supplies routinely, including filters, masks, tubing, and water reservoir. * Use distilled water in PAP water resorvoir. Will follow-up upon review of above and patient to follow-up in clinic in 6 months or sooner prn. Orders: Orders MR head/brain wo/w con 6 Months D32.0 - Benign neoplasm of cerebral meninges, R93.0 - Abnormal findings on diagnostic imaging of skull and head, not elsewhere classified Referrals Allergy & Immunology Referral G47.33 - Obstructive sleep apnea (adult) (pediatric), J30.2 - Other seasonal allergic rhinitis, J30.89 - Other allergic rhinitis, R93.0 - Abnormal findings on diagnostic imaging of skull and head, not elsewhere classified, Z99.89 - Dependence on other enabling machines and devices Ear/Nose/Throat Referral J30.2 - Other seasonal allergic rhinitis, J30.89 - Other allergic rhinitis, R93.0 - Abnormal findings on diagnostic imaging of skull and head, not elsewhere classified Coding Level of Care Code Tele Est Pt Level 4 (14811) Diagnoses Cognitive dysfunction F09 LEANN on CPAP G47.33; Z99.89 Opacified maxillary sinus R93.0 Opacification of frontal sinus R93.0 Meningioma, cerebral D32.0 Seasonal and perennial allergic rhinitis J30.89; J30.2 Opacification of ethmoid sinus R93.0
== END 2025-04-28 10:48 | disposition home or self-care (01) ==
LOC: HO.HSMS 09:08
PROVIDERS: PCP Internal Medicine; Visit Provider Nurse Practitioner Family
DX: R41.89 Other symptoms and signs involving cognitive functions and awareness (principal); G47.33 Obstructive sleep apnea (adult) (pediatric); Z99.89 Dependence on other enabling machines and devices; R93.0 Abnormal findings on diagnostic imaging of skull and head, not elsewhere classified; D32.0 Benign neoplasm of cerebral meninges; J30.89 Other allergic rhinitis; J30.2 Other seasonal allergic rhinitis
CPT/HCPCS: 99214